=== PATIENT | male | born 1965 | race Caucasian/White ===

== ENCOUNTER 2024-03-18 06:19 | Day surgery (SDC) | payer OTHER, SELFPAY ==
[2024-03-18] VITALS (14 sets, daily range): BP systolic 118–155; BP diastolic 73–90; BMI 27.3
[2024-03-18] MEDS: NSS 256 ML IV (07:02)
[2024-03-18 07:09] LABS: Glucose - Point of Care 291 mg/dl (70-99)
--- NOTE | 2024-03-18 08:01 | ITS.CL.CATH ---
Athletic Agent - Catheterization
Cardiac Catheterization
Procedure Report:
CARDIAC CATHETERIZATION REPORT
Date of Procedure: 03/18/2024
Referring: Delmar Cain DO
Indication: Exertional angina with ischemic stress test and new left ventricular dysfunction
�
HEMODYNAMIC DATA
AO: 148/94
LV: 148/20
�
LEFT VENTRICULOGRAPHY: Inferobasal akinesis with severe inferoapical hypokinesis. There is mild anterolateral hypokinesis. The EF is 42%
�
CORONARY ANGIOGRAPHY
Dominance: Right
Left Main: 60-70% distal stenosis at the trifurcation
LAD: The LAD is diffusely diseased throughout its course. There is diffuse pattern precludes segmental stenosis estimates. The most severe segment of disease involves the distal LAD. D1 is small. D2 is large with 70% ostial stenosis
Circumflex: The ramus intermedius is large with long 60% proximal stenosis. The circumflex is occluded distal to the takeoff of a very small OM1. The larger OM 2 fills retrograde via left to left collaterals
RCA: The RCA is proximally occluded. The RPDA appears to be a medium sized diffusely diseased vessel filling via [id number] collaterals
�
Closure Device: None-the procedure was performed via the right radial artery. The Logan's test was normal prior to the procedure.
�
Radiation (mGy): 232
DAP (cm2.Gy): 16.2
Fluoroscopy time: 1.5 minutes
�
CONCLUSIONS
1:�Systemic hypertension
2:�Elevated LVEDP
3. Inferobasal akinesis with mild anterolateral hypokinesis with EF 42%
4. Severe diffuse multisegment triple-vessel CAD with distal left main coronary artery stenosis
5. Recommend elective CABG with grafting of the LAD, large D2, ramus intermedius, OM 2, and if possible RPDA. The patient has been advised to avoid any strenuous activity and report to the emergency room if having increasing anginal symptoms. He
will be started on metoprolol 25 mg daily and given sublingual nitroglycerin. Continue aspirin and Crestor
�
�
Copy to: Delmar Cain DO, Sidney Sarkar MD
�
Silvio Vaughan MD, FACC, [facility]
[2024-03-18 08:27] LABS: Glucose - Point of Care 256 mg/dl (70-99)
[2024-03-18] MEDS: LOPRESSOR 25 MG PO (08:40)
== END 2024-03-18 11:00 | disposition home or self-care (01) ==
LOC: CATH 06:19
PROVIDERS: ATTENDING PHYSICIAN Internal Medicine Cardiovascular Disease; FAMILY PHYSICIAN Family Medicine; OTHER PHYSICIAN Internal Medicine Cardiovascular Disease
DX: I25.118 Atherosclerotic heart disease of native coronary artery with other forms of angina pectoris (principal); I51.9 Heart disease, unspecified; R94.39 Abnormal result of other cardiovascular function study; Z79.899 Other long term (current) drug therapy; Z79.82 Long term (current) use of aspirin; I10 Essential (primary) hypertension
CPT/HCPCS: 82962; 93005; 93458; C1894; Q9967

== ENCOUNTER 2024-04-10 05:10 | Inpatient (IN) | payer OTHER, SELFPAY ==
[2024-04-07 12:30] VITALS: BMI 27.2
[2024-04-07 13:12] LABS: % Basophils 1.3 % (0-2); % Eosinophils 1.4 % (0-6); % Immature Granulocytes 0.5 % (0-0.5); % Lymphocytes 39.2 % (20.5-51.1); % Monocytes 8.1 % (1.7-9.3); % Neutrophils 49.5 % (42.2-75.2); Absolute Basophils 0.1 10^3/uL (0-0.2); Absolute Eosinophils 0.2 10^3/uL (0-0.7); Absolute Immature Granulocytes 0.1 10^3/uL (0-0.05); Absolute Lymphocytes 4.1 10^3/uL (1.2-3.4); Absolute Monocytes 0.8 10^3/uL (0.1-0.6); Absolute Neutrophils 5.1 10^3/uL (1.4-6.5); Hematocrit 38.3 % (39.0-52.0); Hemoglobin 13.8 g/dL (13.0-18.0); Mean Corpuscular Hgb 28.7 pg (27.0-31.0); Mean Corpuscular Volume 79.6 fL (80.0-94.0); Mean Platelet Volume 10.1 fL (7.4-10.4); Nucleated Red Blood Cells % 0 % (-); Platelet Count 266 10^3/uL (130-400); Red Blood Cell Count 4.81 10^6/uL (4.70-6.10); White Blood Cell Count 10.4 10^3/uL (4.8-10.8)
[2024-04-07 13:17] LABS: INR 1.05; PT 13.7 Sec (11.4-14.6)
[2024-04-07 13:18] LABS: ALT (SGPT) 22 U/L (0-50); AST (SGOT) 24 U/L (17-59); Albumin 4.5 g/dl (3.5-5.0); Alkaline Phosphatase 75 U/L (38-126); Blood Urea Nitrogen 22 mg/dl (9-20); Calcium 10.3 mg/dl (8.4-10.2); Carbon Dioxide 23 mmol/L (22-30); Chloride 100 mmol/L (98-107); Direct Bilirubin 0.2 mg/dl (0.0-0.4); Estimated Creatinine Clearance 60 ml/min; Glucose 229 mg/dl (70-99); Potassium 4.6 mmol/L (3.5-5.1); Sodium 137 mmol/L (135-145); Total Bilirubin 0.6 mg/dl (0.2-1.3); Total Protein 6.9 g/dl (6.3-8.2); eGFR > 60.00
[2024-04-07 14:03] LABS: Urine Albumin 3+ (Neg - Trace); Urine Bilirubin Negative (Negative); Urine Character Clear (Clear); Urine Color Yellow; Urine Glucose 2+ (Negative); Urine Ketone Negative (Negative); Urine Leukocyte Negative (Negative); Urine Nitrite Negative (Negative); Urine Occult Blood 4+ (Negative); Urine Urobilinogen Negative (Neg - 1+)
--- NOTE | 2024-04-07 14:23 | CM ---
Met with and Mrs. Carmichael in [facility]'s. He states prior to admission he resides with his spouse and son in a two story home with three steps to enter. He states his bedroom/full bathroom is on the first floor. He states prior to admission he
was independent with ambulation and adls. He states he does not have any DME in the home. He states he has a prescription plan and uses [facility]. He states his spouse will be home to assist in his care if needed. The discharge plan is to
return home with his spouse and son and a home visit by the Cardiothoracic Transitional Care Nurse when medically stable.
We reviewed pre-op and post-op routines. We reviewed the shower instructions. He has the soap, written instructions and the Cardiothoracic Surgery Educational Booklet. We also reviewed restrictions including sternal precautions and driving
restrictions. We discussed a home visit by the Cardiothoracic Transitional Care Nurse. He is agreeable to a home visit. The plan is to CABG on Wednesday, April 10, 2024.
[2024-04-07 15:08] LABS: Glycohemoglobin (HgbA1c) 9.2 % (4.0-5.6)
[2024-04-07 15:29] LABS: Urine Mucus Many
[2024-04-07 15:30] LABS: Urine Amorphous Seen
[2024-04-07 15:31] LABS: Urine White Cell 0-2 /HPF (0-5)
[2024-04-07 15:32] LABS: Urine Hyaline Cast 0-2 /LPF (0-2)
[2024-04-10] VITALS (17 sets, daily range): BP systolic 78–137; BP diastolic 51–93; BMI 26.5
[2024-04-10] MEDS: LOPRESSOR 25 MG PO (05:38)
[2024-04-10] MEDS: MAGNESIUM OXIDE 500 MG PO (05:38)
[2024-04-10] MEDS: PROTONIX 40 MG PO (05:38)
[2024-04-10] MEDS: BACTROBAN 2% OINTMENT 1 APPLIC NASAL ×2 (05:43→22:04)
--- NOTE | 2024-04-10 05:59 | PTCARENOTE ---
pt admitted to the CVICU, pt NPO since midnight and CHG bath performed at home prior. pt clipped & shaved, pre-op meds given, washed with CHG wipes, awaiting CVOR
[2024-04-10 07:27] LABS: ACT+ - POC 93 Seconds (82-134)
[2024-04-10 08:12] LABS: Urine Albumin 3+ (Neg - Trace); Urine Bilirubin Negative (Negative); Urine Character Clear (Clear); Urine Color Yellow; Urine Glucose 1+ (Negative); Urine Ketone Negative (Negative); Urine Leukocyte Negative (Negative); Urine Nitrite Negative (Negative); Urine Occult Blood 3+ (Negative); Urine Urobilinogen Negative (Neg - 1+)
[2024-04-10 08:21] LABS: Urine Squamous Cell 0-2 /LPF (Few)
[2024-04-10 08:22] LABS: Urine Bacteria Few (Negative); Urine Red Blood Cell 16-20 /HPF (0-2); Urine White Cell 0-2 /HPF (0-5)
[2024-04-10 10:15] LABS: B.E. - POC -2.2 mmol/L; Glucose - POC 225 mg/dl (70-99); HCO3 - POC 23 mmol/L (21-29); Hematocrit - POC 33 % PCV (42-52); Hemodilution- POC No; Hemoglobin Calculated - POC 11.3; Ionized Calcium - POC 1.26 mmol/L (1.12-1.27); O2 Saturation %Calculated-POC 99.6 5 (92-96); PCO2 - POC 38 mmHg (35-45); PO2 - POC 175 mmHg (80-100); POC Comment PRE; Potassium - POC 3.9 mmol/L (3.6-5.0); Sodium - POC 137 mmol/L (135-145); pH - POC 7.38 (7.35-7.45)
[2024-04-10 10:44] LABS: Glucose - POC 214 mg/dl (70-99); HCO3 - POC 25 mmol/L (21-29); Hematocrit - POC 25 % PCV (42-52); Hemodilution- POC Yes; Hemoglobin Calculated - POC 8.4; PCO2 - POC 35 mmHg (35-45); PO2 - POC 446 mmHg (80-100); POC Comment CPB; Sodium - POC 135 mmol/L (135-145); pH - POC 7.46 (7.35-7.45)
--- NOTE | 2024-04-10 10:55 | CM ---
pt in OR today, cm to follow.
[2024-04-10 11:13] LABS: B.E. - POC 1.3 mmol/L; Glucose - POC 187 mg/dl (70-99); HCO3 - POC 25 mmol/L (21-29); Hematocrit - POC 24 % PCV (42-52); Hemodilution- POC Yes; Hemoglobin Calculated - POC 8.2; Ionized Calcium - POC 1.03 mmol/L (1.12-1.27); PCO2 - POC 35 mmHg (35-45); PO2 - POC 338 mmHg (80-100); POC Comment CPB; Potassium - POC 4.4 mmol/L (3.6-5.0); Sodium - POC 138 mmol/L (135-145); pH - POC 7.47 (7.35-7.45)
[2024-04-10 11:42] LABS: B.E. - POC 0.8 mmol/L; Glucose - POC 144 mg/dl (70-99); HCO3 - POC 25 mmol/L (21-29); Hematocrit - POC 23 % PCV (42-52); Hemodilution- POC Yes; Hemoglobin Calculated - POC 7.9; Ionized Calcium - POC 1.02 mmol/L (1.12-1.27); O2 Saturation %Calculated-POC 99.9 5 (92-96); PCO2 - POC 35 mmHg (35-45); PO2 - POC 306 mmHg (80-100); POC Comment CPB; Potassium - POC 4.3 mmol/L (3.6-5.0); Sodium - POC 139 mmol/L (135-145); pH - POC 7.46 (7.35-7.45)
[2024-04-10 12:18] LABS: B.E. - POC 0.5 mmol/L; Glucose - POC 127 mg/dl (70-99); HCO3 - POC 25 mmol/L (21-29); Hematocrit - POC 24 % PCV (42-52); Hemodilution- POC Yes; Ionized Calcium - POC 1.02 mmol/L (1.12-1.27); PCO2 - POC 39 mmHg (35-45); PO2 - POC 380 mmHg (80-100); POC Comment REWARM; Potassium - POC 4.5 mmol/L (3.6-5.0); Sodium - POC 140 mmol/L (135-145); pH - POC 7.42 (7.35-7.45)
[2024-04-10 12:49] LABS: B.E. - POC -0.1 mmol/L; Glucose - POC 153 mg/dl (70-99); HCO3 - POC 25 mmol/L (21-29); Hematocrit - POC 24 % PCV (42-52); Hemodilution- POC Yes; Hemoglobin Calculated - POC 8.3; Ionized Calcium - POC 1.08 mmol/L (1.12-1.27); PCO2 - POC 38 mmHg (35-45); PO2 - POC 477 mmHg (80-100); POC Comment WARM; Potassium - POC 4.4 mmol/L (3.6-5.0); Sodium - POC 142 mmol/L (135-145); pH - POC 7.41 (7.35-7.45)
[2024-04-10 12:54] LABS: ACT+ - POC 96 Seconds (82-134)
[2024-04-10 13:34] LABS: B.E. - POC -1.1 mmol/L; Glucose - POC 159 mg/dl (70-99); HCO3 - POC 23 mmol/L (21-29); Hematocrit - POC 25 % PCV (42-52); Hemodilution- POC Yes; Hemoglobin Calculated - POC 8.3; Ionized Calcium - POC 1.11 mmol/L (1.12-1.27); O2 Saturation %Calculated-POC 99.9 5 (92-96); PCO2 - POC 34 mmHg (35-45); PO2 - POC 274 mmHg (80-100); POC Comment POST; Potassium - POC 4.1 mmol/L (3.6-5.0); Sodium - POC 141 mmol/L (135-145); pH - POC 7.44 (7.35-7.45)
--- NOTE | 2024-04-10 13:40 | W.CVOR.SURPR ---
CVOR Surgeon Immed Pre Op
-
I have examined this patient prior to performance of the scheduled procedure.
The patient's condition is unchanged from the time of the dictated/written History and
Physical and the patient is able to undergo the scheduled procedure.
--- NOTE | 2024-04-10 13:40 | W.IMMPOSTOP ---
Addendum entered and electronically signed by Jag Rasmussen MD 04/10/24 14:40:
[id number]
ADDENDUM:
All instrument, sponge, and needle counts correct x 2
Original Note:
Surgical Immed Post Op Note
-
CARDIAC SURGERY OPERATIVE NOTE:
Preoperative Dx:
Severe multi-vessel CAD
Inferobasal akinesis w/ mild anterolateral hypokinesis, LVEF 42%
Postoperative Dx:
Same
Procedures:
1) Median sternotomy
2) Takedown of MARK (narrow pedicle)
3) Endoscopic harvest/prep of RLE GSV
4) CABG x 4 (MARK to distal LAD, GSV to D1, GSV to D2, GSV to OM)
Surgeon:
Jag Rasmussen M.D.
Assistants:
Mitzy Barahona P.A.-C.; endoscopic harvest/prep of RLE GSV, assistant professor of music throughout, closure
Raymon Hobson P.A.-C.; closure of RLE GSV incision
Anesthesia:
Tim Alexander M.D. and Opal VargasN.A.
Perfusion:
Farzana GoddardCWil; XC: 95min, CPB: 146min
Findings:
MARK was healthy conduit w/ brisk blood flow, ELD 2.5mm
GSV was healthy conduit w/ ELD ranging from 3.0-5.0mm
LAD was visible on the epicardial surface. It was extensively calcified throughout its course. The apical segment of the LAD appeared amenable to bypass. ELD 1.20mm. Anastomosis performed over 1.0mm shunt. Brisk blood flow from MARK into LAD
and diagonal tributaries on release of proximal clamp.
D1 was visible on the epicardial surface. It was extensively calcified throughout its course. ELD 1.75mm.
D2 was visible on the epicardial surface. It was extensively calcified throughout its course. ELD 1.50mm
OM was visible on the epicardial surface. It was extensively calcified throughout its course. ELD 1.10mm
PDA was visible on the epicardial surface. It was extensively investigated in numerous locations, but was a diminutive vessel (<1.00mm) not amenable to bypass.
KELSI: LVEF 45% w/ mild global hypokinesis w/ basal inferior segment the worst. Mild concentric LVH. Mild central MR.
Transfusions:
2U PRBC
Implants:
A- and V- temporary epicardial pacing wires & grounding wires (initially bradycardic post CPB)
CT x 4 (anterior mediastinal, inferior mediastinal, bilateral pleural)
Sternal wires x 9
Complications:
None
Condition:
80 sinus w/ ?BBB. 123/65. CVP 14.
GTTS: NTG 25, insulin 1, precedex 0.5, dobutamine 3
Stable, guarded to CVICU
--- NOTE | 2024-04-10 14:00 | PTCARENOTE ---
Received patient from CVOR. Pt intubated and sedated. RAAS -5. POX 100%. 8.0 ETT 24cm at the lip. SIMV 60% 14 550 5/5. Not over breathing the vent at this time. Anterior lung sounds clear. Right and left pleural chest tubes y-sited to 1 atrium to
-20cm suction draining red fluid. Mediastinal chest tubes x2 y-sited to 1 atrium to -20cm suction draining red fluid. No air leaks, tidaling, or crepitus noted. NSR with 1st degree AVB and LBBB on tele with rates in the 80s. BP supported with
levophed. Epicardial AV wires intact. No pacing noted. Thresholds completed and set to back up VVI 50//20 Bilateral radial and DP pulses palpable. No edema noted. CVP 3. Abdomen soft, round, nontender. Hypoactive BS. Alvarez catheter intact draining
adequate amounts of clear yellow urine. Sternal incision covered with Aquacel-CDI. Chest tube dressing CDI. Right groin puncture site slightly oozy, 4x4 tegaderm applied. Right SVG harvest site approximated with skin glue, ROBERT wrap intact. Right
lower leg puncture site slightly oozy, 4x4, tegaderm applied. Right IJ cordis with slick intact. Left radial zoraida intact. Lines flushed, leveled, and zeroed. Right hand 20g PIV intact. See MAR for medication administration. See worklist for
complete nursing assessment. Post op EKG, Labs, and CXR completed.
[2024-04-10 14:10] LABS: Glucose - Point of Care 191 mg/dl (70-99)
--- NOTE | 2024-04-10 14:17 | CON.INTV ---
Consultation
Consultation Request
Date/Time Consultation Requested: 04/10
Date/Time Consultation Performed: 04/10
Reason for Consultation: Critical care
Medical History
-
History of Present Illness:
History obtained from the chart, reviewing hospital records. 59-year-old male with history of coronary disease, hypertension, hyperlipidemia, type 2 diabetes who presented with abnormal stress test and exertional angina. He was found to have EF of
42% with severe diffuse multisegment triple-vessel disease. He is now status post CABG 04/10/2024. Patient received 2 units of blood. Presently on low-dose norepinephrine
.
PMH: Hypertension, hyperlipidemia, diabetes, coronary disease, gout, history of skin cancer, depression, left tibia fracture
Past Medical History
Past Medical History: None (See above)
Past Surgical History: None (See above oral)
Social History
Tobacco: Non-smoker
Alcohol: Occasional
Drug: None
Personal:
Living: With Family
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
Family History
Family History: Other (Father 84, mother alive 84. 1 sister from pancreatic cancer. 1 sister with disability. Children healthy)
Allergies / Home Medications
Allergies
Allergy/AdvReac Type Severity Reaction Status Date / Time
No Known Allergies Allergy Verified 04/02/24 15:06
Home Medications
�Medication �Instructions �Recorded �Confirmed �Last Taken �Type
fluoxetine 20 mg capsule 20 mg PO DAILY 03/18/24 04/10/24 04/09/24 07:30 History
ibuprofen 200 mg capsule 200 mg PO Q6H PRN pain 03/18/24 04/10/24 02/28/24 08:00 History
metformin 500 mg tablet 500 mg PO BID 03/18/24 04/10/24 04/09/24 07:30 History
metoprolol succinate 25 mg 25 mg PO DAILY #90 tabs 03/18/24 04/10/24 04/09/24 07:30 Rx
tablet,extended release 24 hr
nitroglycerin 0.4 mg sublingual 0.4 mg sublingual [id number] PRN 03/18/24 04/10/24 04/08/24 20:00 Rx
tablet chest pain #25 tabs
rosuvastatin 40 mg tablet 40 mg PO DAILY 03/18/24 04/10/24 04/09/24 07:30 History
aspirin 81 mg capsule 81 mg PO DAILY 04/02/24 04/10/24 04/09/24 07:30 History
Review of Systems
-
Unable to Obtain full review of systems at this time due to: Patient Intubation
All other systems: Negative unless noted
Vitals / Labs / Diagnostic Testing
Vital Signs
Pulse Resp Pulse Ox
64 20 100
04/10/24 06:00 04/10/24 06:00 04/10/24 06:00
Microbiology
04/07/24 12:25 Nose MRSA Screen - Final
No Methicillin Resistant Staphylococcus aureus isolated.
Diagnostic Testing:
Physical Exam
-
HEENT: Normocephalic, Anicteric and Other (Right IJ, upper extremity A-line, chest tube)
Cardiovascular: S1/S2, Regular Rhythm, Murmur (n) and Rub (n)
Respiratory: Wheeze (n), Rales (n) and Rhonchi (n)
GI: Soft, Non Distended and Non Tender
Neurology: Other (Sedated and)
General: Comfortable
Assessment
-
59-year-old male with history of shortness of breath, abnormal stress test, found to have LV dysfunction. Cardiac catheterization revealed severe multivessel coronary disease with distal left main disease. He is now status post CABG 04/10/2024.
S/p CABG 04/10/24
Multivessel coronary disease, distal left main disease
Ischemic cardiomyopathy, EF 43% conditions present prior to admission
Anemia
S/p 2U shamar-operative left bundle branch block, per EKG
Conditions present prior to admission
Hyperlipidemia
History of skin cancer
History of left tibial fracture
Family history of cancer (sister)
Plan/recommendations
At this time, patient appears to be comfortable. Remains on volume-cycled ventilation
Adequate oxygenation/ventilation, adequate airway pressures
Chest x-ray without acute findings, chest exam is clear
Preoperative spirometry normal
Postoperatively EKG unremarkable, left bundle branch noted. This is new compared to preoperative EKG
Moving forward
Continue with supportive care per CT surgery
Anticipate extubation later today, per CT surgery protocol
Presently on dobutamine left bundle branch block noted per EKG
Cardiology following
Follow hemoglobin
Received 2 units of blood
Chest tube output minimal
Follow blood sugars
Reviewed with critical care nursing
TCCT 31 min
[2024-04-10 14:18] LABS: B.E. -1.9 mmol/L; HCO3 21.9 mmol/L (21-28); Ionized Calcium 1.05 mMOL/L (1.15-1.33); O2 Saturation % 99.3 % (94-98); PCO2 33 mmHg (35-48); PO2 211 mmHg (83-108); Potassium 4.3 mMOL/L (3.5-5.1); Sodium 137 mMOL/L (136-145); pH 7.43 (7.35-7.45)
[2024-04-10 14:28] LABS: ACT+ - POC > 1003 Seconds (82-134)
[2024-04-10 14:28] LABS: ACT+ - POC > 1003 Seconds (82-134)
[2024-04-10 14:28] LABS: ACT+ - POC > 1003 Seconds (82-134)
[2024-04-10 14:28] LABS: ACT+ - POC > 1003 Seconds (82-134)
[2024-04-10 14:28] LABS: ACT+ - POC > 1003 Seconds (82-134)
[2024-04-10] MEDS: ANCEF 10 IV ×2 (14:31)
[2024-04-10] MEDS: NSS 500 IV (14:32)
[2024-04-10] MEDS: PACERONE PO ×2 (14:32→22:11)
[2024-04-10] MEDS: TYLENOL PO ×2 (14:32→22:11)
[2024-04-10] MEDS: CRESTOR PO (14:32)
[2024-04-10] MEDS: PROZAC PO (14:32)
[2024-04-10] MEDS: NOVOLOG FLEXPEN SC (14:32)
[2024-04-10 14:34] LABS: Mixed Venous O2 Saturation 64.5 %
[2024-04-10] MEDS: LR 250 ML IV ×3 (14:34→18:07)
[2024-04-10 14:35] LABS: Hematocrit 29.3 % (39.0-52.0); Hemoglobin 10.6 g/dL (13.0-18.0); Platelet Count 161 10^3/uL (130-400)
[2024-04-10 14:37] LABS: APTT 32.5 Sec (23.4-35.0); INR 1.52; PT 18.2 Sec (11.4-14.6)
[2024-04-10 14:40] LABS: Blood Urea Nitrogen 18 mg/dl (9-20); Estimated Creatinine Clearance 71 ml/min; Glucose 192 mg/dl (70-99); Magnesium 3.2 mg/dl (1.6-2.3)
[2024-04-10] MEDS: CALCIUM CHLORIDE 10% SYRINGE 50 MG IV (14:45)
[2024-04-10] MEDS: CALCIUM CHLORIDE 10% SYRINGE 50 ML IV (14:45)
--- NOTE | 2024-04-10 14:45 | PTCARENOTE ---
ETT retracted by RT 2cm as per CT UTILITY AIRCREWMAN. Now taped 22cm at the lip. Pt tolerated POX 99%.
--- NOTE | 2024-04-10 14:54 | W.PN.UPDATE ---
Update Note
Progress Note Update
IV fluids: 2800
U.O.:� 1000
UF:� 300
Blood:� 2uPRBCS
Wires:� A+V
Inotropes:� Dobutamine @3
Pressors:� None
Sedatives:� Precedex
�
NEURO: sedated on precedex, pupils +2mm B/L
RESP: #8OT @24cm> 14/550/60/5. Lungs clear B/L. 2 mediastinal (20cc on arrival) and R/L pleural (5cc on arrival) chest tubes to -20cm suction. Sanguineous drainage
CV: RRR +S1, S2, no S3, no�rub, no murmur. Dermabond to median sternotomy. RIJ w/Slicc
EXT: no edema, +2/4 DP pulses B/L, no femoral bruit, LE ROBERT wrap intact; Left radial A-line intact
: Alvarez with clear yellow urine
�
A/P: POD #0 s/p CABG x4
KELSI: EF�45%
- wean and extubate
- Monitor CT and urine output
- Follow up labs and CXR
- Maintain dobutamine per Dr. Rasmussen
- Will start ASA tonight
- EKG pending and will send to cards
- Cards consulted
�
# acute surgical blood loss anemia-expected
- trend CBC
�
# T2DM (A1C 9.2)
- insulin infusion x 48h
- DM management SIMULATION SPECIALIST consulted
�
# Hyperlipidemia
- resume�statin
[2024-04-10 15:06] LABS: Glucose - Point of Care 173 mg/dl (70-99)
[2024-04-10 16:10] LABS: Glucose - Point of Care 153 mg/dl (70-99)
--- NOTE | 2024-04-10 16:45 | PTCARENOTE ---
Pt intermittently will open eyes and close eyes to commands. Wiggle toes and squeezes hands lightly with encouragement. Pt bathed with CHG wipes and turned from side to side. No significant dumps from chest tubes. Pt tolerated.
[2024-04-10] MEDS: ZOFRAN 4 MG IV (16:52)
[2024-04-10 17:00] LABS: Glucose - Point of Care 127 mg/dl (70-99)
[2024-04-10 17:50] LABS: Hemoglobin 11.2 g/dL (13.0-18.0); Platelet Count 179 10^3/uL (130-400)
--- NOTE | 2024-04-10 17:50 | PTCARENOTE ---
Pt more awake, following commands. CT SALES DEPARTMENT MANAGER at bedside to place pt on cpap trial. Pt tolerating, no apnea.
--- NOTE | 2024-04-10 17:54 | RESPNOTE ---
Patient placed on CPAP trial by BRICK CLEANER Alyssa Rosado.
[2024-04-10 18:03] LABS: Glucose - Point of Care 135 mg/dl (70-99)
[2024-04-10 18:30] LABS: B.E. -4.3 mmol/L; HCO3 21.6 mmol/L (21-28); Ionized Calcium 1.24 mMOL/L (1.15-1.33); PCO2 42 mmHg (35-48); PO2 169 mmHg (83-108); pH 7.32 (7.35-7.45)
--- NOTE | 2024-04-10 18:35 | PTCARENOTE ---
Orders to extubate from CT WHANAU SUPPORT WORKER. Pt extubated at 1835 to 6L NC. POX 98%. Pt tolerated, unable to do IS at this time. Pt able to state name, , place, and year.
--- NOTE | 2024-04-10 18:42 | RESPNOTE ---
Patient extubated after CPAP trial and abg. Patient placed on a 6L nasal cannula. IS instruction completed
[2024-04-10] MEDS: OFIRMEV 100 IV (19:00)
[2024-04-10] MEDS: REGLAN 10 MG IV (19:11)
[2024-04-10 19:14] LABS: Glucose - Point of Care 134 mg/dl (70-99)
--- NOTE | 2024-04-10 19:42 | PTCARENOTE ---
obtained pt from day shift nurse, pt is oriented x3 but drowsy, mild complaints of pain Offirmev given, NSR with 1st degree HB and LBB, HR 70s, BPs 140s/80s levo turned off now 110s/40s MAP 65, A/V wire set to VVI V wire 40 16 0.8, CVP 1-2, palpable
pulses, no edema, 6L NC, pox 99-100%, anterior lungs coarse with rhonchi, productive cough w/ thick clear sputum, CTx4 no air leak, no tidaling, +crepitus felt throughout L/R upper chest/neck CTP notified, hypoactive bs, n/v reglan given at change
of shift, hahn putting out clear yellow urine, sternal incision w/ aquacell c/d/i, R groin w/ 4x4 c/d/i, R leg incision w/ nadia wrap c/d/i, R leg puncture 2x2 w/ scant old drainage, RIJ cordis w/ slic single lumen infusion catheter, L a line,
central lines zeroed and flushed, r hand PIV patent, received pt w/ 3 of dobut, levo turned off at 1900, insulin per protocol, pt sleeping btwn care, call mascorro within reach, bed low and locked
[2024-04-10] MEDS: SODIUM BICARBONATE 50 MEQ IV (20:01)
[2024-04-10] MEDS: ANCEF 5 IV (20:01)
[2024-04-10] MEDS: LOW STRENGTH ASPIRIN 81 MG PO (20:10)
[2024-04-10 20:34] LABS: B.E. -0.1 mmol/L; HCO3 25.4 mmol/L (21-28); PCO2 44 mmHg (35-48); PO2 215 mmHg (83-108); Potassium 4.1 mMOL/L (3.5-5.1); pH 7.37 (7.35-7.45)
[2024-04-10 20:36] LABS: O2 Therapy NONE GIVEN
[2024-04-10 21:05] LABS: Glucose - Point of Care 125 mg/dl (70-99)
[2024-04-10] MEDS: SENOKOT-S PO (22:05)
[2024-04-10] MEDS: NEURONTIN PO (22:10)
[2024-04-10 23:00] LABS: Glucose - Point of Care 116 mg/dl (70-99)
[2024-04-11] VITALS (32 sets, daily range): BP systolic 76–136; BP diastolic 51–98; BMI 28.0
--- NOTE | 2024-04-11 | PTCARENOTE ---
VSS, NSR per tele, assessment remains unchanged
[2024-04-11 00:02] LABS: Glucose - Point of Care 104 mg/dl (70-99)
[2024-04-11 01:03] LABS: Glucose - Point of Care 112 mg/dl (70-99)
[2024-04-11] MEDS: NEURONTIN 100 MG PO ×4 (01:05→22:14)
[2024-04-11] MEDS: TYLENOL PO ×2 (01:06→08:32)
[2024-04-11] MEDS: TYLENOL 1000 MG PO ×3 (01:08→22:14)
[2024-04-11 02:02] LABS: Glucose - Point of Care 104 mg/dl (70-99)
[2024-04-11 03:01] LABS: Glucose - Point of Care 107 mg/dl (70-99)
[2024-04-11 03:40] LABS: Hemoglobin 10.4 g/dL (13.0-18.0); Mean Corp Hgb Conc. 35.9 g/dL (33.0-37.0); Mean Corpuscular Hgb 29.5 pg (27.0-31.0); Mean Corpuscular Volume 82.2 fL (80.0-94.0); Mean Platelet Volume 10.1 fL (7.4-10.4); Platelet Count 157 10^3/uL (130-400); Red Blood Cell Count 3.53 10^6/uL (4.70-6.10); Red Cell Dist. Width 13.3 % (11.5-14.5)
[2024-04-11 04:01] LABS: Blood Urea Nitrogen 21 mg/dl (9-20); Calcium 8.6 mg/dl (8.4-10.2); Carbon Dioxide 24 mmol/L (22-30); Chloride 107 mmol/L (98-107); Estimated Creatinine Clearance 65 ml/min; Glucose 106 mg/dl (70-99); Magnesium 2.6 mg/dl (1.6-2.3); Potassium 4.5 mmol/L (3.5-5.1); Sodium 142 mmol/L (135-145); eGFR > 60.00
[2024-04-11 04:06] LABS: Glucose - Point of Care 104 mg/dl (70-99)
[2024-04-11] MEDS: REGLAN 10 MG IV (04:15)
[2024-04-11] MEDS: ANCEF 5 IV ×2 (04:15→12:38)
--- NOTE | 2024-04-11 04:17 | PTCARENOTE ---
routine labs obtained, pt complaining of n/v reglan given, NSR per tele, VSS, assessment remains unchanged
[2024-04-11 04:41] LABS: Mixed Venous O2 Saturation 99.8 %
--- NOTE | 2024-04-11 05:05 | W.PN.CT ---
Today's Communication / Plan
-
-pod #1
-no issues overnight
-drips: Dobut 3, Insulin, Nitro 5
-CT output: 2 pleur 55/110, 2 meds 135/245 in 12/24 hrs
-wean Dobut as tolerated, then deline
-continue insulin
-? maintain Alvarez while on Dobut
-current meds (ASA, Plavix, Crestor, Lopressor, Amio, Protonix)
-encourage IS, OOB
Assessment / Plan
-
- Severe multi-vessel CAD- s/p CABG x 4 (MARK to distal LAD, GSV to D1, GSV to D2, GSV to OM) on 04/10/[address] Rasmussen, pod #1
- Intraop KELSI: LVEF 45% w/ mild global hypokinesis w/ basal inferior segment the worst. Mild concentric LVH. Mild central MR.
- Inferobasal akinesis w/ mild anterolateral hypokinesis
- Ischemic cardiomyopathy, LVEF 42%
- HTN/HLD
- DM II
- Migraines
- Gout
- hx epistaxis
- Skin CA neck/face
- Depression
- Acute postop blood loss anemia - s/p 2 pRBCs
- Acute postop coagulopathy
- Acute postop hypovolemia with subsequent hypervolemia
- Acute postop atelectasis
- Acute postop 1st degree AVB and LBBB - both resolved
- Suspected acute postop pericarditis on ECG
Discussed patient care with: Nursing and Care Team
Subjective
Procedure
- s/p CABG x 4 (MARK to distal LAD, GSV to D1, GSV to D2, GSV to OM) on 04/10/[address] Rasmussen
-
Date of Service: April 10, 2024
Objective Data
-
Lab Results
04/10/24 17:34
04/10/24 14:05
PT 18.2 Sec (11.4-14.6) H 04/10/24 14:05
INR 1.52 04/10/24 14:05
APTT 32.5 Sec (23.4-35.0) 04/10/24 14:05
Vital Signs
Vital Signs
Temp Pulse Resp BP Pulse Ox
97.4 F 69 18 103/63 100
04/10/24 23:00 04/10/24 23:00 04/10/24 23:00 04/10/24 23:00 04/10/24 23:00
CT Intake/Output/Weight
04/10/24 04/10/24 04/11/24
06:59 18:59 06:59
Intake Total 984.6 / 1143.4 158.8 / 1143.4
Output Total 760 / 1080 320 / 1080
Balance 224.6 / 63.4 -161.2 / 63.4
SaO2: 100
Physical Exam
-
General: Awake and AOx3
Cardiovascular: Regular rate & rhythm, No Murmurs and No Rub
Respiratory: Decreased Breath Sounds
Sternum: Stable
Incision: Clean, Dry and Intact
Extremities: No Edema (1+ DPs b/l)
Abdomen: soft, nontender, nondistended, decreased + bowel sounds
Data Reviewed
-
Lab Results: Results Reviewed
Medications: Active Meds Reviewed
Chest X-Ray: Report Reviewed and Image Reviewed
ECG: Report Reviewed and Image Reviewed
[2024-04-11 05:21] LABS: Mixed Venous O2 Saturation 48.1 %
--- NOTE | 2024-04-11 05:52 | PTCARENOTE ---
Addendum entered by Stephanie Nation RN 04/11/24 06:08:
SLIC d/cd per order, keeping A line and hahn per CTPA
Original Note:
pt OOB to chair, CHG bath given, hahn care complete w/ hahn wipes, pt complaining of nausea
[2024-04-11 06:06] LABS: Glucose - Point of Care 165 mg/dl (70-99)
--- NOTE | 2024-04-11 08:03 | W.PN.ANS.POP ---
Anesthesia Post Operative
- Anesthesia Post Op Note
Vital Signs Stable-See Nursing Note: Yes
Airway Patent: Yes
Adequate Pain Control: Yes
Change in Mental Status: No
Current Postoperative Nausea & Vomiting: No
Anesthesia Complications: No
General Anesthetic Recall: No
Unplanned Admission: No
Post Op Hydration Adequate: Yes
[2024-04-11] MEDS: ZOFRAN 4 MG IV (08:04)
--- NOTE | 2024-04-11 08:17 | W.PN.INTV ---
Today's Communication / Plan
Recommendations
Pain control
Up OOB as tolerated
Encourage incentive spirometer use 10x/hr for at least 4 hrs a day
Continue with insulin drip per protocol with goal BG 140�180
Wean off dobutamine as tolerated
Assisted Living Associate/pulmonary service will continue to follow along while patient remains in the CVICU. [facility] then we will sign off.
Assessment
-
59-year-old male with history of shortness of breath, abnormal stress test, found to have LV dysfunction. Cardiac catheterization revealed severe multivessel coronary disease with distal left main disease. He is now status post CABG 04/10/2024.
S/p CABG: OR date: 04/10/24
Multivessel coronary disease, distal left main disease
Ischemic cardiomyopathy, EF 43% conditions present prior to admission
Anemia
S/p 2U shamar-operative left bundle branch block, per EKG
Conditions present prior to admission
Hyperlipidemia
History of skin cancer
History of left tibial fracture
Family history of cancer (sister)
Plan/recommendations
At this time, patient is doing well. Breathing comfortably on room air; extubated on 04/10/2024 to 6 L/min nasal cannula
Chest x-ray without acute findings, chest exam is clear
Preoperative spirometry normal
Postoperatively EKG unremarkable, left bundle branch noted. This is new compared to preoperative EKG
Moving forward
Continue with supportive care per CT surgery
Maintain SpO2 >90-94%
Up OOB as tolerated
Pain control
Encourage incentive spirometer use
Continue insulin drip per protocol, maintain BG goal at 140�180
Maintain MAP >65
Continue dobutamine and wean off as tolerated
Trend hemoglobin
Received 2 units of blood on 04/10/2024
Transfuse blood products as needed to keep Hb>7-8, plt>50k
Chest tubes in place - removal as per CT surgery team
Reviewed above with critical care nursing
Assisted Living Associate/pulmonary service will continue to follow along while patient remains in the CVICU. Once transferred to telemetry then we will sign off.
Critical care statement: A total of 40 minutes of critical care time was provided for this patient today. This includes management of unstable vital signs, evaluation of the patient at bedside, reviewing the patient's pertinent medical records
including radiographs, microbiology, laboratory evaluations, and discussion with primary team, consultants, pharmacy, nutrition, physical therapy, case management, charge nurse, critical care nursing, and respiratory therapy.
Subjective Dataa
Subjective Data
Date of Service:
Date of Service: April 11, 2024
Chief Complaint: Assisted Living Associate Follow Up
Subjective:
Seen and evaluated today at bedside. Sitting in chair no acute distress. Remains on dobutamine drip at 1mcg/kg/min, and insulin drip at 3.5 units/hr. left/right pleural chest tubes + mediastinal chest tubes x [address]. Currently saturating 95%
on room air, heart rate 82 and BP 92/53. He has chest soreness but no shortness of breath unless he takes a deep breath. He denies WATSON, abdominal pain, fevers or chills.
Review of Systems
General: Other (Negative unless mentioned above)
Objective Data
Data Reviewed
Vital Signs / I&O / Oxygen:
Vital Signs
Temp Pulse Resp BP Pulse Ox
97.9 F 87 16 116/57 97
04/11/24 08:00 04/11/24 09:00 04/11/24 09:00 04/11/24 08:00 04/11/24 09:00
Intake and Output
04/10/24 04/11/24 04/12/24
06:59 06:59 06:59
Intake Total 1355.2 / 1355.2 125.1 / 125.1
Output Total 1425 / 1425 110 / 110
Balance -69.8 / -69.8 15.1 / 15.1
SaO2 [CPAP/PSV] 99
SaO2 [SIMV] 100
SaO2 97
Nasal Cannula flow liters per 2
minute
Physical Exam
General: Respiratory Distress (negative), Comfortable, Pain (chest soreness (post-op site)), Chills (negative) and Sweats (negative)
HEENT: Normocephalic and Anicteric
Cardiovascular: S1-S2 and Peripheral Edema (negative)
Respiratory: Wheeze (negative), Crackles (Nobles in anterior left hemithorax), Rhonchi (negative), Non-Labored Respirations and Chest Tube (Right + left pleural chest tubes/mediastinal chest tubes x 2)
GI: Soft, Non Distended, Non Tender and Normal Bowel Sounds
Neurology: AO x 3 and Tremors (negative)
Skin: Warm, Dry and Jaundice (negative)
Labs/Micro/Reports
Lab Data
04/11/24 03:14
04/11/24 03:14
Laboratory Results
04/10/24 04/10/24 04/10/24
14:05 18:23 20:26
PT 18.2 H
INR 1.52
APTT 32.5
pH 7.43 7.32 L 7.37
pCO2 33 L 42 44
pO2 211 H 169 H 215 H
HCO3 21.9 21.6 25.4
O2 Delivery Level None given
Microbiology
04/07/24 12:25 Nose MRSA Screen - Final
No Methicillin Resistant Staphylococcus aureus isolated.
[2024-04-11 08:28] LABS: Glucose - Point of Care 117 mg/dl (70-99)
[2024-04-11] MEDS: NOVOLOG FLEXPEN SC ×2 (08:32→12:38)
[2024-04-11] MEDS: MAGNESIUM OXIDE 500 MG PO (09:07)
[2024-04-11] MEDS: PROZAC 20 MG PO (09:07)
[2024-04-11] MEDS: VITAMIN C 500 MG PO (09:08)
[2024-04-11] MEDS: SENOKOT-S 1 TABLET PO ×2 (09:08→20:16)
[2024-04-11] MEDS: PROTONIX 40 MG PO (09:08)
[2024-04-11] MEDS: CRESTOR 40 MG PO (09:08)
[2024-04-11] MEDS: FEOSOL 325 MG PO (09:08)
[2024-04-11] MEDS: LOW STRENGTH ASPIRIN 81 MG PO (09:09)
[2024-04-11] MEDS: BACTROBAN 2% OINTMENT 1 APPLIC NASAL ×2 (09:09→20:16)
[2024-04-11] MEDS: LIDOCAINE 4% PATCH 1 PATCH TOPICAL (09:09)
[2024-04-11] MEDS: PLAVIX 75 MG PO (09:09)
[2024-04-11] MEDS: ALBUMIN 5% 250 IV (09:10)
[2024-04-11] MEDS: LR 1000 IV (09:11)
[2024-04-11] MEDS: NOVOLIN R INSULIN INFUSION 100 IV (09:18)
[2024-04-11] MEDS: PACERONE PO (09:24)
[2024-04-11] MEDS: LOPRESSOR PO (09:24)
--- NOTE | 2024-04-11 09:42 | PTCARENOTE ---
assumed care of pt from previous shift RN, sinus rhythm on tele, bp stable, levophed weaned off. + peripheral pulses, no edema, epicardial pacing wire in place for back up. Lungs diminished, pox 95% on RA. Coughing and deep breathing encouraged. Pt
medicated for nausea with good relief. Alvarez catheter draining yellow. CT x4 w minimal amount of red drainage. Right IJ cordis w dobutamine infusing at 3mcg as ordered. Insulin titrated per glycemic protocol. LR infusion initiated at 80ml per order.
Pt assisted from chair to bed, resting without complaint.
[2024-04-11 11:04] LABS: Glucose - Point of Care 90 mg/dl (70-99)
[2024-04-11 12:22] LABS: Mixed Venous O2 Saturation 65.3 %
[2024-04-11] MEDS: NSS IV (12:41)
--- NOTE | 2024-04-11 12:56 | PTCARENOTE ---
VSS, sinus rhythm maintained, minimal drainage from CTs, adequate urine output, dobutamine infusing at 2mcg as instructed.
[2024-04-11 13:26] LABS: Glucose - Point of Care 98 mg/dl (70-99)
[2024-04-11 15:09] LABS: Glucose - Point of Care 122 mg/dl (70-99)
--- NOTE | 2024-04-11 16:00 | PTCARENOTE ---
zoraida brooks/c'ed, CT dressing changed, pt assisted OOB to chair. Tolerated well.
[2024-04-11 17:19] LABS: Glucose - Point of Care 91 mg/dl (70-99)
[2024-04-11] MEDS: NOVOLOG FLEXPEN 300 UNITS SC (17:55)
[2024-04-11 18:15] LABS: Mixed Venous O2 Saturation 40.3 %
[2024-04-11 19:17] LABS: Glucose - Point of Care 108 mg/dl (70-99)
[2024-04-11 20:00] LABS: Glucose - Point of Care 92 mg/dl (70-99)
[2024-04-11] MEDS: MAGNESIUM OXIDE PO (20:15)
[2024-04-11 20:50] LABS: Mixed Venous O2 Saturation 59.6 %
--- NOTE | 2024-04-11 21:00 | PTCARENOTE ---
Patient received OOB in chair. Patient A+A+Ox3. No neurological deficits noted. Patient with c/o tiredness and blurry eyes. PUBLICITY MANAGER for CT Surgery, Giuliano Chung, at bedside - Assessed patient and performed NIH Stroke Scale assessment - No deficits
noted. Patient assisted to bed with assist x2. No s/s of respiratory distress. No c/o SOB. Room air. SaO2 97%. Four chest tubes - Mediastinal x2 and Right and Left Pleural - Intact and patent - 10-20 ml red drainage - No air leak, tidaling or
crepitus noted. Chest tube dressing intact. Sinus Tachycardia. Heart rate 100's. Patient continues on Dobutamine gtt per provider orders. Patient with no c/o chest pain, pressure or discomfort. AV Wires. A-Wire off. VVI Rate 40, Output 16,
Sensitivity 0.8. Normoactive bowel sounds. No BM. No c/o nausea. No vomiting. Alvarez catheter - Intact and patent - Light ting, yellow urine - Outputs as documented. Patient with no c/o back or flank pain. Afebrile. Generalized edema.
Sternal Aquacell dressing intact. Right groin dressing intact. Right knee incision - Surgical adhesive - Intact and open to air. RLE puncture site - Intact - Open to air. Positive, palpable pulses. Right I.J. Cordis - Intact and patent - Saline
flush 10 ml/hr. Insulin gtt - Glycemic Protocol. Mixed Venous O2 Saturation sent - 59.6. Assessment as documented.
[2024-04-11] MEDS: NSS 500 IV (22:15)
[2024-04-11] MEDS: DOBUTREX 500 MG 250 IV (22:15)
[2024-04-11 22:29] LABS: Glucose - Point of Care 94 mg/dl (70-99)
[2024-04-12] VITALS (20 sets, daily range): BP systolic 88–122; BP diastolic 48–71; BMI 28.8
[2024-04-12 00:04] LABS: Glucose - Point of Care 97 mg/dl (70-99)
--- NOTE | 2024-04-12 00:30 | PTCARENOTE ---
Patient sleeping without difficulty. No further changes from previous assessment.
[2024-04-12] MEDS: ROXICODONE 5 MG PO ×2 (02:10→20:13)
[2024-04-12] MEDS: DILAUDID 0.25 MG IV (02:14)
[2024-04-12 02:20] LABS: Glucose - Point of Care 86 mg/dl (70-99)
[2024-04-12 03:35] LABS: Glucose - Point of Care 95 mg/dl (70-99)
[2024-04-12 03:57] LABS: Mixed Venous O2 Saturation 75.8 %
[2024-04-12 04:22] LABS: Blood Urea Nitrogen 28 mg/dl (9-20); Calcium 8.2 mg/dl (8.4-10.2); Carbon Dioxide 23 mmol/L (22-30); Chloride 101 mmol/L (98-107); Estimated Creatinine Clearance 52 ml/min; Glucose 102 mg/dl (70-99); Magnesium 2.5 mg/dl (1.6-2.3); Potassium 4.4 mmol/L (3.5-5.1); Sodium 135 mmol/L (135-145); eGFR 52.64
[2024-04-12 04:24] LABS: Hematocrit 23.4 % (39.0-52.0); Hemoglobin 8.2 g/dL (13.0-18.0); Mean Corpuscular Hgb 29.6 pg (27.0-31.0); Mean Corpuscular Volume 84.5 fL (80.0-94.0); Platelet Count 146 10^3/uL (130-400); Red Blood Cell Count 2.77 10^6/uL (4.70-6.10); Red Cell Dist. Width 13.5 % (11.5-14.5); White Blood Cell Count 15.9 10^3/uL (4.8-10.8)
[2024-04-12 04:32] LABS: Glucose - Point of Care 100 mg/dl (70-99)
[2024-04-12] MEDS: DILAUDID 0.5 MG IV (04:44)
--- NOTE | 2024-04-12 04:55 | W.PN.CT ---
Today's Communication / Plan
-
-pod #2
-no issues overnight, feels better after pain medicine
-drips: Dobutamine was off then back on late afternoon, ScvO2 now 69.9% this morning off dobutamine again, Insulin drip continued
-CT output: 2 pleur 40/110, 2 meds 50/130 in 12/24 hrs
-current meds (ASA, Plavix, Crestor, Lopressor, Amio, Protonix)
-encourage IS, OOB
Assessment / Plan
-
- Severe multi-vessel CAD- s/p CABG x 4 (MARK to distal LAD, GSV to D1, GSV to D2, GSV to OM) on 04/10/[address] Rasmussen, pod #2
- Intraop KELSI: LVEF 45% w/ mild global hypokinesis w/ basal inferior segment the worst. Mild concentric LVH. Mild central MR.
- Inferobasal akinesis w/ mild anterolateral hypokinesis
- Ischemic cardiomyopathy, LVEF 42%
- HTN/HLD
- DM II
- Migraines
- Gout
- hx epistaxis
- Skin CA neck/face
- Depression
- Acute postop blood loss anemia - s/p 2 pRBCs
- Acute postop coagulopathy
- Acute postop hypovolemia with subsequent hypervolemia
- Acute postop atelectasis
- Acute postop 1st degree AVB and LBBB - both resolved
- Suspected acute postop pericarditis on ECG
Subjective
Procedure
- s/p CABG x 4 (MARK to distal LAD, GSV to D1, GSV to D2, GSV to OM) on 04/10/[address] Rasmussen
-
Date of Service: April 12, 2024
Objective Data
-
Lab Results
04/12/24 03:47
04/12/24 03:47
PT 18.2 Sec (11.4-14.6) H 04/10/24 14:05
INR 1.52 04/10/24 14:05
APTT 32.5 Sec (23.4-35.0) 04/10/24 14:05
Vital Signs
Vital Signs
Temp Pulse Resp BP Pulse Ox
99.6 F 97 14 113/63 99
04/12/24 04:00 04/12/24 04:30 04/12/24 04:00 04/12/24 04:00 04/12/24 04:00
CT Intake/Output/Weight
04/11/24 04/11/24 04/12/24
06:59 18:59 06:59
Intake Total 370.6 / 1355.2 1284.6 / 1496.2 211.6 / 1496.2
Output Total 665 / 1425 460 / 885 425 / 885
Balance -294.4 / -69.8 824.6 / 611.2 -213.4 / 611.2
SaO2: 99
Physical Exam
-
General: Awake, Oriented and AOx3
Cardiovascular: Regular rate & rhythm, No Murmurs and No Rub
Respiratory: Clear and Equal
Sternum: Stable
Incision: Clean, Dry and Dressing Intact
Extremities: No Edema
Data Reviewed
-
Lab Results: Results Reviewed
Medications: Active Meds Reviewed
Chest X-Ray: Report Reviewed
ECG: Report Reviewed
--- NOTE | 2024-04-12 05:00 | PTCARENOTE ---
Patient A+A+Ox3. No neurological deficits noted. Dobutamine gtt titrated to off per provider order. Patient given CHG bath and linens changed. Chest tube dressing changed. AM lab work collected and sent. Patient resting in bed. OOB in AM.
Assessment/Interventions as documented.
[2024-04-12 05:09] LABS: Glucose - Point of Care 113 mg/dl (70-99)
[2024-04-12 06:15] LABS: Glucose - Point of Care 100 mg/dl (70-99)
[2024-04-12 06:23] LABS: Mixed Venous O2 Saturation 69.9 %
[2024-04-12] MEDS: TYLENOL 1000 MG PO ×3 (06:25→22:59)
[2024-04-12] MEDS: CALCIUM CHLORIDE 10% SYRINGE 60 MG IV (07:29)
[2024-04-12] MEDS: LOPRESSOR 12.5 MG PO ×2 (08:10→20:13)
[2024-04-12] MEDS: MAGNESIUM OXIDE 500 MG PO (08:10)
[2024-04-12] MEDS: PACERONE 200 MG PO ×3 (08:10→22:58)
[2024-04-12] MEDS: PLAVIX 75 MG PO (08:10)
[2024-04-12] MEDS: SENOKOT-S 1 TABLET PO ×2 (08:11→20:13)
[2024-04-12] MEDS: NEURONTIN 100 MG PO ×3 (08:11→22:58)
[2024-04-12] MEDS: CRESTOR 40 MG PO (08:11)
[2024-04-12] MEDS: LOW STRENGTH ASPIRIN 81 MG PO (08:11)
[2024-04-12] MEDS: PROTONIX 40 MG PO (08:11)
[2024-04-12] MEDS: VITAMIN C 500 MG PO (08:11)
[2024-04-12] MEDS: BACTROBAN 2% OINTMENT 1 APPLIC NASAL ×2 (08:11→20:12)
[2024-04-12] MEDS: FEOSOL 325 MG PO (08:11)
[2024-04-12] MEDS: PROZAC 20 MG PO (08:11)
[2024-04-12] MEDS: NOVOLOG FLEXPEN 4 UNITS SC (08:13)
[2024-04-12 08:14] LABS: Glucose - Point of Care 112 mg/dl (70-99)
[2024-04-12] MEDS: LIDOCAINE 4% PATCH 1 PATCH TOPICAL (08:14)
[2024-04-12] MEDS: ZOFRAN 4 MG IV (08:20)
--- NOTE | 2024-04-12 08:50 | W.PN.INTV ---
Today's Communication / Plan
Recommendations
Pain control
Up OOB as tolerated
Encourage incentive spirometer use 10x/hr for at least 4 hrs a day
Being weaned off insulin drip today with lantus bridge, goal BG 140�180
Patient is being downgraded to CVICU�telemetry status today - no additional recommendations at this time. [employer] Supervisor/Pulmonary service will now sign off. Please reconsult if there are any additional questions/concerns, or if patient's respiratory
status deteriorates.
Assessment
-
59-year-old male with history of shortness of breath, abnormal stress test, found to have LV dysfunction. Cardiac catheterization revealed severe multivessel coronary disease with distal left main disease. He is now status post CABG 04/10/2024.
Impression:
S/p CABG: OR date: 04/10/24
Multivessel coronary disease, distal left main disease
Ischemic cardiomyopathy, EF 43% conditions present prior to admission
Anemia
S/p 2U shamar-operative left bundle branch block, per EKG
Conditions present prior to admission
Hyperlipidemia
History of skin cancer
History of left tibial fracture
Family history of cancer (sister)
Plan/recommendations
At this time, patient is doing well. Breathing comfortably on room air; extubated on 04/10/2024 to 6 L/min nasal cannula
Chest x-ray today with suspected medial LLL subsegmental atelectasis, chest exam is clear
Preoperative spirometry normal
Postoperatively EKG unremarkable, left bundle branch noted. This is new compared to preoperative EKG
Moving forward
Continue with supportive care per CT surgery
Maintain SpO2 >90-94%
Up OOB as tolerated
Pain control
Encourage incentive spirometer use
Wean off insulin drip --> given that his 24-hour insulin usage was approximately 65 units, will administer 25% of that dose. Please give 15 units Lantus now and turn off insulin drip 2 hours later, and then start daily Lantus at 15 units with ISS,
keeping BG at goal 140-180
Maintain MAP >65
Dobutamine has been weaned off
Trend hemoglobin
Received 2 units of blood on 04/10/2024
Transfuse blood products as needed to keep Hb>7-8, plt>50k
Chest tubes removed this AM
Reviewed above with critical care nursing
Patient is being downgraded to CVICU�telemetry status today - he is being weaned off of insulin drip, and has already been weaned off dobutamine. He is stable on room air breathing comfortably and hemodynamically stable. No additional
recommendations at this time. [employer] Supervisor/Pulmonary service will now sign off. Thank you for allowing us to be involved in the care of this patient. Please reconsult if there are any additional questions/concerns, or if patient's respiratory
status deteriorates.
Total time spent today was 55 minutes for this encounter. Time includes reviewing laboratory test/imaging results, reviewing pertinent medical records, obtaining and reviewing medical history, performing an appropriate exam, ordering medications,
tests and procedures. Time also includes documentation of this encounter, coordinating patient care and communicating with other healthcare professionals. Total time does not include separately billed tests performed on this date of service.
Subjective Dataa
Subjective Data
Date of Service:
Date of Service: April 12, 2024
Chief Complaint: [employer] Supervisor Follow Up
Subjective:
Seen this AM. He is doing well - resting in bed in NAD. Afebrile overnight. On room air breathing comfortably. Dobutamine drip titrated off this morning. Remains on insulin drip at 0.6 units/hr, and BP 117/67, heart rate 88 and saturating 94%.
He has some mild postoperative site chest pain, otherwise denies SOB, WATSON, abdominal pain, nausea, fevers or chills. Chest tubes x 4 removed this morning as well.
Review of Systems
General: Other (Negative unless mentioned above)
Objective Data
Data Reviewed
Vital Signs / I&O / Oxygen:
Vital Signs
Temp Pulse Resp BP Pulse Ox
98.2 F 86 16 117/67 95
04/12/24 08:00 04/12/24 11:00 04/12/24 08:00 04/12/24 11:00 04/12/24 11:12
Intake and Output
04/11/24 04/12/24 04/13/24
06:59 06:59 06:59
Intake Total 1355.2 / 1355.2 1642.2 / 1642.2 145.9 / 145.9
Output Total 1425 / 1425 965 / 965 95 / 95
Balance -69.8 / -69.8 677.2 / 677.2 50.9 / 50.9
SaO2 [CPAP/PSV] 99
SaO2 [SIMV] 100
SaO2 95
Nasal Cannula flow liters per 2
minute
Physical Exam
General: Respiratory Distress (negative), Comfortable, Pain (chest soreness (post-op site)), Chills (negative) and Sweats (negative)
HEENT: Normocephalic and Anicteric
Cardiovascular: S1-S2 and Peripheral Edema (negative)
Respiratory: Wheeze (negative), Crackles ([place] in anterior left hemithorax), Rhonchi (negative) and Non-Labored Respirations
GI: Soft, Non Distended, Non Tender and Normal Bowel Sounds
Neurology: AO x 3 and Tremors (negative)
Skin: Warm, Dry and Jaundice (negative)
Labs/Micro/Reports
Lab Data
04/12/24 03:47
04/12/24 03:47
--- NOTE | 2024-04-12 10:22 | PTCARENOTE ---
assumed care of pt from previous shift RN, sinus rhythm on tele, vss, + peripheral pulses, no edema noted. Epicardial pacing wires insulated. Lungs diminished d/t poor effort, coughing and deep breathing encouraged. +bs, c/o intermittent nausea,
however, pt rapidly ate entire breakfast and large cup of water. Zofran administered as ordered. Alvarez catheter maintained, draining yellow urine.
Pt assisted from chair to bed. CTx4 removed as ordered.
Insulin gtt maintained as ordered.
Plan of care reviewed w the pt and questions encouraged.
[2024-04-12 11:02] LABS: Glucose - Point of Care 92 mg/dl (70-99)
[2024-04-12] MEDS: LANTUS 0.15 UNITS SC (13:11)
[2024-04-12 13:13] LABS: Glucose - Point of Care 97 mg/dl (70-99)
[2024-04-12] MEDS: NOVOLOG FLEXPEN SC (13:35)
[2024-04-12] MEDS: LASIX 40 MG IV (14:10)
--- NOTE | 2024-04-12 14:19 | PTCARENOTE ---
pt begrudgingly assisted from bed to chair. Explained the importance of post op mobility to patient. pt refuses to walk or preform incentive spirometer at this time. Labs obtained as ordered. Emotional support provided.
[2024-04-12 14:48] LABS: Blood Urea Nitrogen 31 mg/dl (9-20); Calcium 9.4 mg/dl (8.4-10.2); Carbon Dioxide 24 mmol/L (22-30); Chloride 98 mmol/L (98-107); Estimated Creatinine Clearance 52 ml/min; Glucose 109 mg/dl (70-99); Potassium 4.8 mmol/L (3.5-5.1); Sodium 132 mmol/L (135-145); eGFR 52.64
[2024-04-12] MEDS: NOVOLOG FLEXPEN-MODERATE RESISTANCE SC (15:42)
[2024-04-12] MEDS: ROXICODONE 2.5 MG PO (15:43)
--- NOTE | 2024-04-12 16:28 | PTCARENOTE ---
pt agreed to walk. Max assist with 2 nurses, successfully walked ~ 50' before being lowered into a chair. VS remain stable.
[2024-04-12 17:19] LABS: Glucose - Point of Care 186 mg/dl (70-99)
[2024-04-12] MEDS: NOVOLOG FLEXPEN-MODERATE RESISTANCE 1 UNITS SC (17:19)
[2024-04-12] MEDS: MAGNESIUM OXIDE PO (19:56)
--- NOTE | 2024-04-12 20:30 | PTCARENOTE ---
Patient received resting in bed. Patient A+A+Ox3. No neurological deficits noted. Roxicodone 5mg PO for pain management. No s/s of respiratory distress. Room air. 97%. Sleeping - SaO2 92%. 2L O2 HS. Chest tube dressing intact. Sinus
Rhythm. Heart rate 70-80's. AV Wires insulated. Patient with no c/o chest pain, pressure or discomfort. Normoactive bowel sounds. No BM. No c/o nausea. No vomiting. Alvarez catheter - Outputs as documented. Patient with no c/o back or flank
pain. Sternal Aquacell dressing intact. Right groin dressing intact. Right knee incision - Intact - Surgical adhesive. Right lower leg site - Open to air. Positive, palpable pulses. Generalized edema. Right I.J. Cordis - Intact and patent -
Saline flush 10 ml/hr. Afebrile. Assessment as documented.
[2024-04-12 23:05] LABS: Glucose - Point of Care 207 mg/dl (70-99)
[2024-04-13] VITALS (23 sets, daily range): BP systolic 95–137; BP diastolic 55–82; PULSE 70; O2SAT 94–97; BMI 29.1
--- NOTE | 2024-04-13 | PTCARENOTE ---
Patient sleeping without difficulty. No further changes from previous assessment.
--- NOTE | 2024-04-13 04:00 | PTCARENOTE ---
Patient A+A+Ox3. No neurological deficits noted. Patient with no c/o pain or discomfort. AM lab work collected and sent. Patient back to sleep. Assessment/Interventions as documented.
[2024-04-13 04:33] LABS: Mixed Venous O2 Saturation 63.3 %
[2024-04-13] MEDS: NSS 500 IV (04:35)
[2024-04-13 04:58] LABS: Hematocrit 18.8 % (39.0-52.0); Hemoglobin 6.6 g/dL (13.0-18.0); Mean Corp Hgb Conc. 35.1 g/dL (33.0-37.0); Mean Corpuscular Hgb 29.9 pg (27.0-31.0); Mean Corpuscular Volume 85.1 fL (80.0-94.0); Mean Platelet Volume 10.1 fL (7.4-10.4); Platelet Count 142 10^3/uL (130-400); Red Blood Cell Count 2.21 10^6/uL (4.70-6.10); Red Cell Dist. Width 13.1 % (11.5-14.5); White Blood Cell Count 14.6 10^3/uL (4.8-10.8)
[2024-04-13 05:25] LABS: Blood Urea Nitrogen 39 mg/dl (9-20); Calcium 8.1 mg/dl (8.4-10.2); Carbon Dioxide 22 mmol/L (22-30); Chloride 97 mmol/L (98-107); Estimated Creatinine Clearance 48 ml/min; Glucose 195 mg/dl (70-99); Magnesium 2.4 mg/dl (1.6-2.3); Potassium 4.6 mmol/L (3.5-5.1); Sodium 130 mmol/L (135-145); eGFR 48.72
--- NOTE | 2024-04-13 05:40 | W.PN.CT ---
Addendum entered and electronically signed by Jag Rasmussen MD 04/13/24 08:12:
I saw and examined the patient.
The PA's note was reviewed and I agree with the note.
Comment:
Patient is doing well overall. No significant complaints this morning. Chest x-ray reviewed.
Hemodynamically stable off dobutamine infusion since yesterday morning
Unclear source of anemia, but likely represents combination of delusional anemia from volume overload combined with acute operative blood loss
Creatinine 1.6 today from 1.5, maintain Alvarez
Diuresis today
Transfuse 1 unit packed red blood cells
Out of bed, I-S, ambulate
Original Note:
Today's Communication / Plan
-
-pod #3
-no issues overnight
-HR/BP stable without support, ScvO2 63.3% this AM off dobutamine since yesterday morning
-Hgb trend 10.4->8.2-> 6.6, repeat CXR without large effusion, denies relative sx, 1 U PRBC ordered
-Cr 1.5->1.6 today (1.3-1.1 pre op), UOP 535/1020 in 12/24 hrs
-CTs out 04/12
-current meds (ASA, Plavix, Crestor, Lopressor 12.5 mg, Amio, Protonix)
-Appreciate DM recs, on short/long acting insulin
-encourage IS, OOB, 99% on RA
Assessment / Plan
-
- Severe multi-vessel CAD- s/p CABG x 4 (MARK to distal LAD, GSV to D1, GSV to D2, GSV to OM) on 04/10/[address] Rasmussen, pod #3
- Intraop KELSI: LVEF 45% w/ mild global hypokinesis w/ basal inferior segment the worst. Mild concentric LVH. Mild central MR.
- Inferobasal akinesis w/ mild anterolateral hypokinesis
- Ischemic cardiomyopathy, LVEF 42%
- HTN/HLD
- DM II
- Migraines
- Gout
- hx epistaxis
- Skin CA neck/face
- Depression
- Acute postop blood loss anemia - s/p 2 pRBCs
- Acute postop coagulopathy
- Acute postop hypovolemia with subsequent hypervolemia
- Acute postop atelectasis
- Acute postop 1st degree AVB and LBBB - both resolved
- Suspected acute postop pericarditis on ECG
Subjective
Procedure
- s/p CABG x 4 (MARK to distal LAD, GSV to D1, GSV to D2, GSV to OM) on 04/10/[address] Rasmussen
-
Date of Service: April 13, 2024
Objective Data
-
Lab Results
04/13/24 04:21
PT 18.2 Sec (11.4-14.6) H 04/10/24 14:05
INR 1.52 04/10/24 14:05
APTT 32.5 Sec (23.4-35.0) 04/10/24 14:05
Vital Signs
Vital Signs
Temp Pulse Resp BP Pulse Ox
98.6 F 68 16 108/59 98
04/13/24 04:15 04/13/24 05:00 04/13/24 04:15 04/13/24 04:15 04/13/24 04:15
CT Intake/Output/Weight
04/12/24 04/12/24 04/13/24
06:59 18:59 06:59
Intake Total 357.6 / 1642.2 417.3 / 767.3 350 / 767.3
Output Total 505 / 965 645 / 1180 535 / 1180
Balance -147.4 / 677.2 -227.7 / -412.7 -185 / -412.7
SaO2: 98
Physical Exam
-
General: Awake, Oriented and AOx3
Cardiovascular: Regular rate & rhythm and No Murmurs
Respiratory: Clear and Equal
Sternum: Stable
Incision: Clean, Dry and Dressing Intact
Extremities: No Edema and No Erythema
Data Reviewed
-
Lab Results: Results Reviewed
Medications: Active Meds Reviewed
Chest X-Ray: Report Reviewed
ECG: Report Reviewed
[2024-04-13] MEDS: TYLENOL 1000 MG PO ×3 (06:05→23:05)
[2024-04-13 06:09] LABS: Hematocrit 20.6 % (39.0-52.0); Mean Corpuscular Volume 82.4 fL (80.0-94.0); Mean Platelet Volume 10.4 fL (7.4-10.4); Platelet Count 160 10^3/uL (130-400); Red Cell Dist. Width 13.1 % (11.5-14.5); White Blood Cell Count 14.7 10^3/uL (4.8-10.8)
[2024-04-13 06:49] LABS: Glucose - Point of Care 227 mg/dl (70-99)
--- NOTE | 2024-04-13 07:00 | PTCARENOTE ---
Bedside walking rounds report received. Patient seen on rounds resting in bed on 2l nasal canula: titrated to room air and assisted patient oob to chair after 1 unit prbc's were transfused without reaction this am. Somewhat flat affect. Oriented x
3. Neuro intact. Per Dr. Rasmussen on am rounds, will maintain hahn for today for critical I and o's. Temporary epicardial wires a and v insulated and secured. NSR . See flow record for remaining assessments.
--- NOTE | 2024-04-13 07:26 | PN.DE.MGMTRT ---
Insulin Management
- -
04/13/2024: Diabetes Management Consult
59 year old male with PMH: Left tibial fx, HTN, HLD, T2DM, Migraines, Gout, hx epistaxis, Skin CA to neck and face, Depression and SOB with abnormal stress test, found to have LV dysfunction. Cardiac catheterization revealed severe multivessel
coronary disease with distal left main disease.
He is now s/p CABG 04/10/2024. Was transitioned off insulin drip to SQ insulin 04/12 --> Lantus 15 units and moderate corrective insulin with meals. States he was taking Metformin 500mg BID since January, but was not monitoring his blood sugars. A1C 9.2%,
Cr 1.6, eGFR 48.72
Pt awake, A/O x3, pleasant, sitting up in bed, offers no complaints, able to discuss diabetes management
Glucose has remained elevated since transitioning off drip. HS glucose was 207 and FBG 195 (V) and 227 POC
Pt is ordered Lantus 15 units in AM. Noted for TOM with Cr 1.6. Cont to hold Metformin, will resume when Cr at baseline.
Will add Januvia, 1 st does NOW. Cont Lantus 15 units in AM and low corrective with meals
Will return to provide glucose monitor and insulin instructions this afternoon.
Diabetes History
- -
Type of Diabetes: 2 requiring insulin
Pre-Admission Diabetes Regimen
04/12/24 04/13/24
14:09 04:21
Creatinine 1.5 H 1.6 H
Lab Results
Hemoglobin A1c 9.2 % (4.0-5.6) H 04/07/24 12:25
Insulin Pump Settings
IP Diabetes Regimen
04/12/24 04/12/24 04/12/24
08:13 11:00 13:12
Glucose
POC Glucose 112 H 92 97
04/12/24 04/12/24 04/12/24
14:09 17:17 23:04
Glucose 109 H
POC Glucose 186 H 207 H
04/13/24 04/13/24
04:21 06:47
Glucose 195 H
POC Glucose 227 H
Meal type: Dinner
Meal type: Breakfast
Amount consumed: 55%
Patient Education
--- NOTE | 2024-04-13 07:41 | W.PN.CD ---
Today's Communication / Plan
-
Increase furosemide to 40 mg IV BID.
Monitor renal function, oxygenation with diuretics.
Not quite ready for GDMT.
Impression / Plan
-
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
#CAD
-Chronic.
-S/P CABG x4 (PRAKASH to LAD, SVG to D1, SVG to D2, SVG to OM) with Dr. Rasmussen, 04/10/2024.
-Continue amiodarone, aspirin, clopidogrel, metoprolol and rosuvastatin.
-Encourage incentive spirometry and ambulation.
-Anemia is concerning - no obvious blood loss. There is some degree of dilution.
-Agree with transfusion.
-The patient is on an inefficient part of his Serjio-Starling curve. Continue diuresis with furosemide 40 mg IV BID. Low threshold to change to bumetanide gtt to avoid BP peaks/valleys.
-With diuresis, I suspect BP and renal function will paradoxically improve.
#ICMO/HFmEF
-New diagnosis.
-LVEF 45% with hypokinetic inferior base.
-Diuresis as above.
-Continue metoprolol.
-Hold further GDMT (sacubitril-valsartan, SGLT2i, MRA) until BP/renal function has stabilized.
#HTN
-Chronic, stable.
-Continue metoprolol.
-Further titration when euvolemic.
#DM2
-Chronic, stable.
-Hold metformin until renal function stabilizes.
#TOM
-Acute.
-Cr 1.6 <-- 1.5.
-I suspect cardiorenal syndrome.
-Monitor with diuresis.
Subjective/Interval History:
Hbg drifted down to 6.6, prompting transfusion.
Weight is up 7.2 kg (!) from miguel on 04/10/2024 (88.5 <-- 85.9 <-- 81.3).
SaO2 98% on 2LNC.
Furosemide 40 mg IV given yesterday afternoon.
Creatinine 1.6 this morning.
DATA:
Intraprocedure KELSI, 04/10/2024:
CONCLUSIONS
Overall LVEF is approximately 45%.
Mild global hypokinesis. Basal inferior appears to be the worst moving
segment.
Mild concentric left ventricular hypertrophy.
Normal diastolic function.
AV is tricuspid with mildly thickened cusps.
Mild mitral regurgitation.
MR jet is central likely due to mild annular dilation.
Moderate sessile atheroma seen in the descending aorta and distal arch.
POST OPERATIVE FINDINGS
The patient underwent a CABG on bypass. Postop rhythm remains sinus. RV and
LV function appear more vigorous. Overall LVEF is now approximately 55% with
improved regional wall motion. Basal inferior wall appears to move normally.
Mild central MR is unchanged. TV, PV, and AV show normal function. Aortic
scan is unchanged.
Cardiac Catheterization, 03/18/2024:
CORONARY ANGIOGRAPHY
Dominance: Right
Left Main: 60-70% distal stenosis at the trifurcation
LAD: The LAD is diffusely diseased throughout its course. There is diffuse pattern precludes segmental stenosis estimates. The most severe segment of disease involves the distal LAD. D1 is small. D2 is large with 70% ostial stenosis
Circumflex: The ramus intermedius is large with long 60% proximal stenosis. The circumflex is occluded distal to the takeoff of a very small OM1. The larger OM 2 fills retrograde via left to left collaterals
RCA: The RCA is proximally occluded. The RPDA appears to be a medium sized diffusely diseased vessel filling via [id number] collaterals
PFT's, 04/07/2024:
Impression:
No evidence of obstruction or restriction. Normal spirometry. Consider full PFT's if additional lung function evaluation is needed.
Physical Exam
Vital Signs/Labs
Vital Signs
Temp Pulse Resp BP Pulse Ox
37.0 C 68 16 108/59 98
04/13/24 04:15 04/13/24 05:00 04/13/24 04:15 04/13/24 04:15 04/13/24 05:44
04/11/24 04/12/24 04/13/24
11:59 11:59 11:59
Actual Weight 85.9 kg 88.5 kg
04/13/24 04:21
PT 18.2 Sec (11.4-14.6) H 04/10/24 14:05
INR 1.52 04/10/24 14:05
APTT 32.5 Sec (23.4-35.0) 04/10/24 14:05
Magnesium 2.4 mg/dl (1.6-2.3) H 04/13/24 04:21
Physical Exam
Constitutional: No acute distress and Comfortable
EENT: Anicteric and Moist mucous membranes
Cardiovascular: Rhythm & rate is regular, JVD pressure is normal, Pedal edema present, S1S2 is normal and Murmur/rub/gallop absent
Respiratory: Respiratory effort normal and Other (Decreased in the bilateral bases.)
GI: Soft and Distention absent
Neuro/Psych: AO x 3
Data Reviewed
-
Date of Service: April 13, 2024
Medical Decision Making: Reviewed Test Results, Independent Historian Assessment, Test Interpretation and Review of Case with other Provider
EKG: Tracing Personally Visualized and interpreted and Report Reviewed by me
Echo: Report Reviewed by me
X-Ray/CT/US/MRI/NUC/PET: Image Personally Visualized and interpreted and Report Reviewed by me
Medical Tests (PFT, Pathology etc): Report Reviewed by me
Labs: Labs Reviewed by me
Old Records: Reviewed
[2024-04-13] MEDS: CALCIUM CHLORIDE 10% SYRINGE 60 MG IV (08:13)
[2024-04-13] MEDS: PLAVIX 75 MG PO (08:31)
[2024-04-13] MEDS: NEURONTIN 100 MG PO ×3 (08:31→23:05)
[2024-04-13] MEDS: MAGNESIUM OXIDE 500 MG PO (08:32)
[2024-04-13] MEDS: CRESTOR 40 MG PO (08:32)
[2024-04-13] MEDS: PROTONIX 40 MG PO (08:32)
[2024-04-13] MEDS: PROZAC 20 MG PO (08:32)
[2024-04-13] MEDS: SENOKOT-S 1 TABLET PO ×2 (08:32→19:52)
[2024-04-13] MEDS: LOPRESSOR 12.5 MG PO (08:32)
[2024-04-13] MEDS: VITAMIN C 500 MG PO (08:32)
[2024-04-13] MEDS: PACERONE 200 MG PO ×3 (08:32→23:05)
[2024-04-13] MEDS: FEOSOL 325 MG PO (08:32)
[2024-04-13] MEDS: LOW STRENGTH ASPIRIN 81 MG PO (08:32)
[2024-04-13] MEDS: LASIX 40 MG IV ×2 (08:33→14:04)
[2024-04-13] MEDS: LIDOCAINE 4% PATCH TOPICAL (08:33)
[2024-04-13] MEDS: BACTROBAN 2% OINTMENT 1 APPLIC NASAL ×2 (08:41→19:52)
[2024-04-13] MEDS: JANUVIA 100 MG PO (08:41)
[2024-04-13 09:19] LABS: Glucose - Point of Care 224 mg/dl (70-99)
[2024-04-13] MEDS: NOVOLOG FLEXPEN-MODERATE RESISTANCE 3 UNITS SC (09:23)
[2024-04-13] MEDS: LANTUS 0.15 UNITS SC (09:24)
--- NOTE | 2024-04-13 12:00 | PTCARENOTE ---
No acute changes. Remains oob in chair on room air. NSR. Diuresing. Additiobnal lasix IV to be given per order.
[2024-04-13 12:08] LABS: Glucose - Point of Care 280 mg/dl (70-99)
[2024-04-13] MEDS: NOVOLOG FLEXPEN-MODERATE RESISTANCE 5 UNITS SC (12:12)
--- NOTE | 2024-04-13 14:29 | CM ---
Reviewed chart. Met with Mr. Carmichael to review discharge plans. He states he is feeling okay. He states he ambulated today 75 feet today. We reviewed a home visit by the Cardiothoracic Transitional Care Nurse. He is agreeable to a home visit.
Prior to admission he resides with his spouse and son in a two story home with three steps to enter. He has a full flight of steps to get to bedroom/full bathroom. He has a powder room on the first floor. Prior to admission he was independent with
ambulation and adls. He does not have any DME in the home. He has a prescription plan and uses [facility]. Will need to see his current functional level to see if he will have any skilled needs. Medical work-up in progress. The discharge plan
is to return home with his spouse and son and a home visit by the Cardiothoracic Transitional Care Nurse when medically stable.
--- NOTE | 2024-04-13 15:20 | PTCARENOTE ---
Ambulated in hallway: a bit off balance: see post activity vitals post 125feet ambulated: right leg very ecchymotic
[2024-04-13 15:26] LABS: Blood Urea Nitrogen 42 mg/dl (9-20); Calcium 8.4 mg/dl (8.4-10.2); Carbon Dioxide 22 mmol/L (22-30); Chloride 95 mmol/L (98-107); Estimated Creatinine Clearance 48 ml/min; Glucose 272 mg/dl (70-99); Potassium 4.2 mmol/L (3.5-5.1); Sodium 129 mmol/L (135-145); eGFR 48.72
[2024-04-13 15:38] LABS: Hematocrit 24.6 % (39.0-52.0); Hemoglobin 8.6 g/dL (13.0-18.0)
--- NOTE | 2024-04-13 16:29 | PN.DE ---
Diabetes Education
- -
Diabetes Education consult
59 year old male with A1C of 9.2%. 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
Met with pt to provide diabetes education- monitor instructions and insulin instructions and was unsuccessful. Pt states he is not feeling well, states his brain feels foggy and is requesting I return tomorrow when his is at bedside. Will try
again tomorrow at 10am when is present.
[2024-04-13] MEDS: NOVOLOG FLEXPEN-HIGH RESISTANCE 7 UNITS SC (16:58)
[2024-04-13 17:00] LABS: Glucose - Point of Care 257 mg/dl (70-99)
--- NOTE | 2024-04-13 17:35 | PTCARENOTE ---
Addendum entered by Tee Carmichael RN 04/13/24 17:44:
Also educated as to water weight gain in 24hours
Original Note:
Patient educated on insulin scale and how novolog insulin pens work/setting dosage. Needs reinforcement. Patient also educated on fluid intake excess and how it can affect sodium levels: instructed to moderate water intake
[2024-04-13] MEDS: LASIX 60 MG IV (17:56)
[2024-04-13] MEDS: TOPROL XL 12.5 MG PO (19:52)
--- NOTE | 2024-04-13 20:00 | PTCARENOTE ---
Assumed care of patient at 1900. Patient found oob in chair at time of assessment. Patient is AOx4, follows commands appropriately, moves all extremities. Lung sounds are diminished throughout, saO2 96% on RA. Heart sounds have a regular rate and
rhythm. Patient is SR on the monitor. A+V wires are present but insulated. Patient has normal palpable radial pulses, and weak but palpable dorsalis pedis pulses. +1 generalized anasarca is present. Patient has round soft abdomen with active BS and
hahn in place draining clear yellow urine. Patient has sternal incision with aquacell dressing that is CDI, abd dressing over CT wounds that is CDI, a R groin puncture with 4x4 dressing and ecchymosis surrounding it that is CDI, and a RLE incision
that is approx with surg adhesive NIMA and ecchymotic. Patient has a R IJ cordis and R hand PIV. Patient has unsteady gait, but can ambulate with assistx1. VSS.
--- NOTE | 2024-04-13 23:00 | PTCARENOTE ---
Patient reassessed. VSS. Remains SR on the monitor.
[2024-04-13 23:11] LABS: Glucose - Point of Care 209 mg/dl (70-99)
[2024-04-14] VITALS (7 sets, daily range): BP systolic 106–141; BP diastolic 59–66; PULSE 72; O2SAT 99; BMI 31.9; BMI 28.3
--- NOTE | 2024-04-14 03:00 | PTCARENOTE ---
Patient reassessed. VSS. Remains SR on the monitor. No c/o pain. AM labs obtained.
[2024-04-14 03:35] LABS: Ionized Calcium 1.15 mMOL/L (1.15-1.33)
[2024-04-14 03:37] LABS: Hematocrit 23.2 % (39.0-52.0); Hemoglobin 8.5 g/dL (13.0-18.0); Mean Corp Hgb Conc. 36.6 g/dL (33.0-37.0); Mean Corpuscular Hgb 28.6 pg (27.0-31.0); Mean Corpuscular Volume 78.1 fL (80.0-94.0); Mean Platelet Volume 9.8 fL (7.4-10.4); Platelet Count 177 10^3/uL (130-400); Red Blood Cell Count 2.97 10^6/uL (4.70-6.10); Red Cell Dist. Width 13.2 % (11.5-14.5); White Blood Cell Count 12.2 10^3/uL (4.8-10.8)
[2024-04-14 04:00] LABS: Blood Urea Nitrogen 42 mg/dl (9-20); Calcium 8.4 mg/dl (8.4-10.2); Carbon Dioxide 24 mmol/L (22-30); Chloride 96 mmol/L (98-107); Estimated Creatinine Clearance 48 ml/min; Glucose 186 mg/dl (70-99); Magnesium 2.1 mg/dl (1.6-2.3); Potassium 3.7 mmol/L (3.5-5.1); Sodium 133 mmol/L (135-145); eGFR 48.72
--- NOTE | 2024-04-14 04:37 | W.PN.CT ---
Today's Communication / Plan
-
-No major issues overnight. Hemodynamically and neurologically intact
-Off all drips
-Received 1u PRBC yesterday for h/h 7.0/20.6, 8.5/23.2 today
-Postop TOM 1.6, was 1.6 yesterday, 1.1-1.3 preop. May benefit from higher BP for perfusion. Still has hahn catheter
-Unable to resume Metformin given TOM, unable to start GDMT
-Diabetes management following
-Postop hyponatremia, 129 yesterday, 133 today. Cont. diuresis, fluid restriction. Diuresed 4 L/24hrs
-D/C cordis (kinked)
-F/U 2-view cxr
-Transitioned Lopressor to Toprol XL given ICM
-Cont. current meds (ASA, Plavix, Crestor, Toprol XL, Amio, Protonix)
-Encouarage use of IS
-OOB into chair/Ambulate
-Will cut A/V temporary PW prior to d/c home
-Home likely tomorrow
Assessment / Plan
-
- Severe multi-vessel CAD- s/p CABG x 4 (MARK to distal LAD, GSV to D1, GSV to D2, GSV to OM) on 04/10/[address] Rasmussen, pod #4
- Intraop KELSI: LVEF 45% w/ mild global hypokinesis w/ basal inferior segment the worst. Mild concentric LVH. Mild central MR.
- Inferobasal akinesis w/ mild anterolateral hypokinesis
- Ischemic cardiomyopathy, LVEF 42%
- HTN/HLD
- DM II
- Migraines
- Gout
- hx epistaxis
- Skin CA neck/face
- Depression
- Acute postop blood loss anemia - s/p 3 pRBCs
- Acute postop coagulopathy
- Acute postop hypovolemia with subsequent hypervolemia
- Acute postop atelectasis
- Acute postop 1st degree AVB and LBBB - both resolved
- Suspected acute postop pericarditis on ECG
- Acute postop TOM
Discussed patient care with: Cardiology, Nursing, Respiratory Therapy, Pharmacy and Care Team
Subjective
Procedure
- s/p CABG x 4 (AMRK to distal LAD, GSV to D1, GSV to D2, GSV to OM) on 04/10/[address] Rasmussen
-
Date of Service: April 14, 2024
Pt c/o mild incisional pain, otherwise feels well
Objective Data
-
Lab Results
04/14/24 03:28
04/14/24 03:28
PT 18.2 Sec (11.4-14.6) H 04/10/24 14:05
INR 1.52 04/10/24 14:05
APTT 32.5 Sec (23.4-35.0) 04/10/24 14:05
Vital Signs
Vital Signs
Temp Pulse Resp BP Pulse Ox
98.1 F 76 18 119/65 94
04/13/24 15:26 04/14/24 03:00 04/13/24 15:26 04/13/24 23:05 04/13/24 23:05
CT Intake/Output/Weight
04/13/24 04/13/24 04/14/24
06:59 18:59 06:59
Intake Total 360 / 787.3 1645 / 1645
Output Total 835 / 1540 1610 / 4060 2450 / 4060
Balance -475 / -752.7 35 / -2415 -2450 / -2415
SaO2: 94 (RA)
Physical Exam
-
General: Awake, Oriented and AOx3
Cardiovascular: Regular rate & rhythm, No Murmurs, No Rub and No Gallop
Respiratory: Decreased Breath Sounds (at bases, otherwise clear)
Sternum: Stable
Incision: Clean, Dry, Intact and Dressing Intact
Extremities: No Edema
Data Reviewed
-
Lab Results: Results Reviewed
Medications: Active Meds Reviewed
Chest X-Ray: Report Reviewed and Image Reviewed
ECG: Report Reviewed and Image Reviewed
[2024-04-14] MEDS: CALCIUM GLUCONATE 100 IV (05:55)
[2024-04-14] MEDS: TYLENOL 1000 MG PO ×2 (05:55→14:33)
[2024-04-14] MEDS: KCL 40 MEQ PO (06:10)
--- NOTE | 2024-04-14 07:52 | PN.DE.MGMTRT ---
Insulin Management
- -
04/14/2024: Diabetes Management Consult Follow up
Patient admitted 04/10 for CABG. PMH: Left tibial fx, HTN, HLD, T2DM, Migraines, Gout, hx epistaxis, Skin CA to neck and face, Depression and SOB with abnormal stress test, found to have LV dysfunction. Cardiac catheterization revealed severe
multivessel coronary disease with distal left main disease. Prior to admission was taking Metformin 500mg BID since January, but was not monitoring his blood sugars. A1C 9.2%, Cr 1.6, eGFR 48.72
Transitioned off insulin drip to SQ insulin 04/12 --> Lantus 15 units and moderate corrective insulin with meals.
Pt awake, A/O x3, pleasant, sitting up in bed, offers no complaints, able to discuss diabetes management. at bedside and supportive.
POD 4 s/p CABG x 4. Glucose has remained elevated since transitioning off drip. 04/13 glucose range 209 to 280. Will increase AM lantus to 18 units.
CR this AM 1.6, eGFR 48.72, continue holding Metformin, will resume when Cr at baseline.
Januvia 100 mg started 04/13. Will increase AM lantus from 15 units to 18 units in AM and high corrective with meals. Discussed starting Farxiga 10 mg daily with CV FORESTRY FIRE AIDE, to start this AM.
Provided and instructed on use of Contour next glucose monitor with fair return demonstration, will assist at home. Instructed patient on insulin action, prep and injection technique for both novolog and lantus. Good return demonstration but
will need reinforcement. Patient able to state the difference between fast acting and long acting insulin. Discussed with patients nurse, nursing to have patient prepare and administer all insulin injections with nursing supervision. Provided
home pen needles. Printed instructions with pictures for each step of insulin administration.
Will follow.
Diabetes History
- -
Type of Diabetes: 2
Pre-Admission Diabetes Regimen
04/13/24 04/14/24
14:53 03:28
Creatinine 1.6 H 1.6 H
Lab Results
Hemoglobin A1c 9.2 % (4.0-5.6) H 04/07/24 12:25
Insulin Pump Settings
IP Diabetes Regimen
04/13/24 04/13/24 04/13/24
09:17 12:06 14:53
Glucose 272 H
POC Glucose 224 H 280 H
04/13/24 04/13/24 04/14/24
16:56 23:10 03:28
Glucose 186 H
POC Glucose 257 H 209 H
Meal type: Breakfast
Amount consumed: 100%
Patient Education
[2024-04-14 08:22] LABS: Glucose - Point of Care 185 mg/dl (70-99)
[2024-04-14] MEDS: LASIX 40 MG IV (08:56)
[2024-04-14] MEDS: LOW STRENGTH ASPIRIN 81 MG PO (08:57)
[2024-04-14] MEDS: MAGNESIUM OXIDE 500 MG PO (08:57)
[2024-04-14] MEDS: PROZAC 20 MG PO (08:57)
[2024-04-14] MEDS: PLAVIX 75 MG PO (08:57)
[2024-04-14] MEDS: JANUVIA 100 MG PO (08:57)
[2024-04-14] MEDS: CRESTOR 40 MG PO (08:57)
[2024-04-14] MEDS: NEURONTIN 100 MG PO ×2 (08:57→15:50)
[2024-04-14] MEDS: TOPROL XL 25 MG PO (08:58)
[2024-04-14] MEDS: VITAMIN C 500 MG PO (08:58)
[2024-04-14] MEDS: SENOKOT-S 1 TABLET PO (08:58)
[2024-04-14] MEDS: PROTONIX 40 MG PO (08:58)
[2024-04-14] MEDS: PACERONE 200 MG PO ×2 (08:58→15:50)
[2024-04-14] MEDS: FEOSOL 325 MG PO (08:58)
[2024-04-14] MEDS: BACTROBAN 2% OINTMENT 1 APPLIC NASAL (08:59)
[2024-04-14] MEDS: NOVOLOG FLEXPEN-HIGH RESISTANCE 2 UNITS SC (08:59)
--- NOTE | 2024-04-14 09:04 | W.PN.CD ---
Addendum entered and electronically signed by Faisal Pang DO 04/15/24 16:57:
Response to CDI: Ischemic cardiomyopathy (LVEF 45%) is chronic.
Original Note:
Today's Communication / Plan
-
Continue diuresis.
Monitor renal function.
Ambulate.
Incentive spirometry.
Likely GDMT tomorrow if renal function stable/improved with diuretics.
Impression / Plan
-
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
#CAD
-Chronic.
-S/P CABG x4 (PRAKASH to LAD, SVG to D1, SVG to D2, SVG to OM) with Dr. Rasmussen, 04/10/2024.
-Continue amiodarone, aspirin, clopidogrel, metoprolol and rosuvastatin.
-Encourage incentive spirometry and ambulation.
-Anemia is improving with transfusion and diuresis.
-The patient remains on an inefficient part of his Serjio-Starling curve. Continue diuresis with furosemide 40 mg IV BID.
#ICMO/HFmEF
-New diagnosis.
-LVEF 45% with hypokinetic inferior base.
-Diuresis as above.
-Continue metoprolol succinate.
-Hold further GDMT (sacubitril-valsartan, SGLT2i, MRA) until BP/renal function has stabilized.
#HTN
-Chronic, stable.
-Continue metoprolol.
-Further titration when euvolemic.
#DM2
-Chronic, stable.
-Hold metformin until renal function stabilizes.
#TOM
-Acute.
-Cr 1.6 <-- 1.5.
-I suspect cardiorenal syndrome.
-Monitor with diuresis.
Subjective/Interval History:
I suspect typo in the weights as reported weight has risen 8.6 kg from yesterday (97.9 kg <-- 89.3 kg <-- 88.5 kg <-- 85.5 kg) while we are actively diuresing the patient.
Blood pressure is improving with diuresis and transfusion.
Hbg increased from 7.0 --> 8.6.
Na improved from 129 --> 133.
Metoprolol tartrate changed to succinate as of this morning.
DATA:
Intraprocedure KELSI, 04/10/2024:
CONCLUSIONS
Overall LVEF is approximately 45%.
Mild global hypokinesis. Basal inferior appears to be the worst moving
segment.
Mild concentric left ventricular hypertrophy.
Normal diastolic function.
AV is tricuspid with mildly thickened cusps.
Mild mitral regurgitation.
MR jet is central likely due to mild annular dilation.
Moderate sessile atheroma seen in the descending aorta and distal arch.
POST OPERATIVE FINDINGS
The patient underwent a CABG on bypass. Postop rhythm remains sinus. RV and
LV function appear more vigorous. Overall LVEF is now approximately 55% with
improved regional wall motion. Basal inferior wall appears to move normally.
Mild central MR is unchanged. TV, PV, and AV show normal function. Aortic
scan is unchanged.
Cardiac Catheterization, 03/18/2024:
CORONARY ANGIOGRAPHY
Dominance: Right
Left Main: 60-70% distal stenosis at the trifurcation
LAD: The LAD is diffusely diseased throughout its course. There is diffuse pattern precludes segmental stenosis estimates. The most severe segment of disease involves the distal LAD. D1 is small. D2 is large with 70% ostial stenosis
Circumflex: The ramus intermedius is large with long 60% proximal stenosis. The circumflex is occluded distal to the takeoff of a very small OM1. The larger OM 2 fills retrograde via left to left collaterals
RCA: The RCA is proximally occluded. The RPDA appears to be a medium sized diffusely diseased vessel filling via [id number] collaterals
PFT's, 04/07/2024:
Impression:
No evidence of obstruction or restriction. Normal spirometry. Consider full PFT's if additional lung function evaluation is needed.
Physical Exam
Vital Signs/Labs
Vital Signs
Temp Pulse Resp BP Pulse Ox
36.8 C 72 20 111/59 94
04/14/24 03:00 04/14/24 08:58 04/14/24 03:00 04/14/24 08:58 04/14/24 05:31
04/12/24 04/13/24 04/14/24
11:59 11:59 11:59
Actual Weight 88.5 kg 89.3 kg 97.9 kg
04/14/24 03:28
04/14/24 03:28
PT 18.2 Sec (11.4-14.6) H 04/10/24 14:05
INR 1.52 04/10/24 14:05
APTT 32.5 Sec (23.4-35.0) 04/10/24 14:05
Magnesium 2.1 mg/dl (1.6-2.3) 04/14/24 03:28
Physical Exam
Constitutional: No acute distress and Comfortable
EENT: Anicteric and Moist mucous membranes
Cardiovascular: Rhythm & rate is regular, Pedal edema present, JVD present, S1S2 is normal and Murmur/rub/gallop absent
Respiratory: Respiratory effort normal and Other (Decreased in the bilateral bases.)
GI: Soft, Distention absent, Flat, Non tender and Normal bowel sounds
Neuro/Psych: AO x 3
Data Reviewed
-
Date of Service: April 14, 2024
Medical Decision Making: Reviewed Test Results, Independent Historian Assessment, Test Interpretation and Review of Case with other Provider
EKG: Tracing Personally Visualized and interpreted and Report Reviewed by me
Echo: Tracing Personally Visualized and interpreted and Report Reviewed by me
X-Ray/CT/US/MRI/NUC/PET: Image Personally Visualized and interpreted and Report Reviewed by me
Medical Tests (PFT, Pathology etc): Report Reviewed by me
Labs: Labs Reviewed by me
Old Records: Reviewed
[2024-04-14] MEDS: LIDOCAINE 4% PATCH TOPICAL (09:08)
--- NOTE | 2024-04-14 09:21 | PTCARENOTE ---
Patient received from shift superintendent resting oob in chair, AAO X 3, states pain controlled. NSR via cm, SaO2 @ 98% on RA. RIJ Cordis present. Epicardial A+V wires, insulated to chest wall. All procedural sites stable. Alvarez catheter to gravity. Patient
updated to plan of care for the day, in agreement. See work list for full assessment and interventions performed.
[2024-04-14] MEDS: LANTUS 0.18 UNITS SC (09:35)
--- NOTE | 2024-04-14 10:31 | PTCARENOTE ---
Alvarez catheter, Cordis d/c'd as ordered. Temporary epicardial pacing wires cut by MERLINE Anderson w/RN assist. Patient tolerated all procedures well, resting comfortably.
[2024-04-14] MEDS: NSS IV (10:41)
[2024-04-14] MEDS: NOVOLOG FLEXPEN-HIGH RESISTANCE 7 UNITS SC (11:43)
[2024-04-14] MEDS: FARXIGA 10 MG PO (11:44)
[2024-04-14 11:45] LABS: Glucose - Point of Care 253 mg/dl (70-99)
--- NOTE | 2024-04-14 12:59 | PTCARENOTE ---
Received handoff from Lissa RN at 1100; AAOx4 and responds to spontaneous stimulation; NSR on monitor; VSS; DP and radial pulses present; Lungs diminished at bases; SpO2 93-96% on RA; Pt had small unmeasured BM and urine; All incisions CDI; PIVx1
right Wrist flushing appropriately; See nursing documentation for further details
--- NOTE | 2024-04-14 15:16 | W.DCSUMMARY ---
Discharge Summary
Discharge Data
Date of Admission: 04/10/24
Date of Discharge: 04/14/24
-
Pending Results: No
Hospital Course
Primary care physician: Sidney Booker
Outpatient excavating contractor: Delmar Cain
Inpatient consultants: [facility], Diabetes nurse practitioner
Procedures:
1. Coronary artery bypass grafting
Primary Diagnosis:
1. Coronary artery disease
Secondary Diagnoses:
1. Hypertension
2. Hyperlipidemia
3. Type 2 diabetes-uncontrolled (A1C 9.2)
4. Gout
5. Skin cancer could paced
6. Depression
7. Acute surgical blood loss anemia�expected
8. Acute postoperative TOM
HPI: 59-year-old male was electively admitted on 04/10/2024 for coronary artery artery bypass grafting due to left main/triple-vessel coronary disease
Hospital course: Patient underwent CABG x 4 (MARK to distal LAD, GSV to D1, GSV to D2, GSV to OM) with Dr. Jag Rasmussen. Patient received 2 units of packed red blood cells intraoperatively. He returned to CVICU on dobutamine, Levophed, insulin,
Precedex patient is extubated at 1845 on day of surgery. Postop EKG showed new left bundle branch block which resolved on the EKG from postop day #1. Aspirin and Plavix were initiated. Patient was weaned off dobutamine on postoperative day #2.
Insulin drip was weaned off and Lantus initiated. Patient was diuresed with 40 mg of IV Lasix to mediastinal send a right and left pleural chest tube were discontinued. On postoperative day #3, 1 unit of PRBCs was given for the globin of 7.0.
Alvarez was maintained due to creatinine of 1.6 and continue diuresis. On postoperative day #4, the creatinine level plateaued at 1.6 and hemoglobin increased to 8.5. Metformin continued to be held due to elevated creatinine and will be reevaluated
for need at outpatient primary care follow-up. The Right IJ cordis was removed and temporary epicardial pacing wires were clipped to skin level. The Alvarez was removed and patient voided without difficulty. Patient ambulated in halls with cardiac
rehab. Aquacel dressing was removed and sternotomy incision noted to be clean dry and intact. Patient was evaluated by diabetes nurse practitioner and patient will be discharged on Lantus Solostar, Januvia and Farxiga. Discount coupon for Farxiga
was given to the patient on discharge.
Home medication changes:
Stop:
Ibuprofen and metformin due to elevated creatinine
Nitroglycerin
New meds:
Clopidogrel
Farxiga
Lantus Solostar
Januvia
Protonix while on Plavix
Discharge Plan
-
Patient Disposition: Home (Routine Discharge)
Discharge Diagnosis/Procedures: CAD/CABG
Condition: Good
Diet: Low Fat, Low Cholesterol, Low Sodium and Diabetic, Carb Controlled
Activity: No strenuous activity
Driving Restrictions: Not until seen by your Dr
Bathing Restrictions: OK to Shower
Blood Work: BMP in one week/ Call results to office
Other Services: Cardiac Rehab
Specialty Instructions: Weigh Daily- Call MD for wt gain/loss 3 lbs overnight/5 lbs in 1 week
Activity Restrictions/Additional Instructions:
ACTIVITY:
-No strenuous activity: no heavy lifting, pushing, pulling anything over 15 pounds for one month
-continue to use stairs as tolerated
DRIVING RESTRICTIONS:
-No driving for one month or until approved by your surgeon
WOUND CARE:
-Shower daily. Use soap & water.
-No lotions, creams or powders on incision area.
DIET:
-continue a low fat/low cholesterol diet.
-IF you are diabetic, continue carb controlled diet.
CARDIAC REHAB:
-Please make appointment to start in 5-6 weeks with your local hospital program. (See Cardiac Rehabilitation Discharge Booklet).
SPECIALTY INSTRUCTIONS:
-Weigh yourself daily. Call your physician for any weight gain of 3 lbs overnight or 5 lbs in one week.
-REPORT any clicking noise or uneven appearance of your sternum to your surgeon immediately.
-If you smoke, you are instructed to quit. The [place] smoking hotline phone number is [phone]
Referrals:
CT Transitional Care Nurse [Outside] - in one to two days
(
The Cardiothoracic Transitional Care Nurse will call you to set up a visit in 1-2 days.)
[facility]. Cardiac Rehab [Outside] - 05/18/24 1:00 pm
(Cardiac Rehab Orientation appointment is on SaturdayMay 18 @ 1:00pm
The Cardiac Rehab gym is located on the first floor of the [facility].)
Sidney Booker MD [Family Provider] - in four to six weeks (Please make an appointment in four to six weeks. )
Delmar Cain DO [Non-Admitting Privileges] - 05/21/24 11:00 am
Jag Rasmussen MD [Active] - 05/12/24 2:30 pm
Additional Discharge Medication Instructions: Stop ibuprofen
Stop metformin until seen by your doctor
Stop nitroglycerin SL
Prescriptions:
New
Januvia 100 mg Tablet
100 mg PO DAILY Qty: 30 2RF
clopidogrel 75 mg Tablet
75 mg PO DAILY Qty: 30 3RF
pantoprazole 40 mg Tablet,Delayed Release (Dr/Ec)
40 mg PO DAILY Qty: 30 3RF
acetaminophen 325 mg Tablet
650 mg PO Q4HPRN PRN (Reason: mild pain,headache,temp >101F ) Qty: 0 0RF
sennosides-docusate sodium 8.6-50 mg Tablet
1 tab PO Q12 Qty: 20 1RF
dapagliflozin propanediol 10 mg Tablet
10 mg PO DAILY Qty: 30 3RF
(DME) Contour Next Test Strips Strip
Qty: 200 0RF
Rx Instructions:
Test blood sugar before each meal and bedtime As Directed
E11.65
insulin glargine [Lantus Solostar U-100 Insulin] 100 unit/mL (3 mL) Insulin Pen
18 unit SC DAILY Qty: 5 0RF
Rx Instructions:
Take at 10 AM each morning
(DME) pen needle, diabetic [BD Ultra-Fine Susy Pen Needle] 32 gauge x ' Needle
Qty: 100 0RF
Rx Instructions:
Use with lantus pen at 10am each morning As Directed
(DME) lancets [Color Lancets] 21 gauge Misc
Qty: 200 0RF
Rx Instructions:
Test before each meal and bedtime As Directed
E11.65
oxycodone 5 mg tablet
5 mg PO Q6HPRN PRN (Reason: severe pain) Qty: 20 0RF
Continued
fluoxetine 20 mg Capsule
20 mg PO DAILY
rosuvastatin 40 mg Tablet
40 mg PO DAILY
aspirin 81 mg Capsule
81 mg PO DAILY
metoprolol succinate 25 mg tablet extended release 24 hr
25 mg PO DAILY
Discontinued
metformin 500 mg Tablet
500 mg PO BID
ibuprofen 200 mg Capsule
200 mg PO Q6H PRN (Reason: pain)
nitroglycerin 0.4 mg tablet, sublingual
0.4 mg sublingual [id number] PRN (Reason: chest pain) Qty: 25 5RF
Discharge Orders:
Discharge Patient (As Directed); Ordered 04/14/24
Ordered By: Tejal Anderson
Care Plan Goals
Care Plan Goals:
Problem: Readiness for enhanced knowledge related to diagnosis and treatment plan
Goal: Understand your diagnosis and treatment plan needs, including medications if applicable.
Instructions: Know your diagnosis, underlying causes and treatment plan options, including medications if applicable. Consult with your health care team to learn about your diagnosis and treatment plan, including medications if applicable.
Discharge Date and Time
Print Language: DUTCH
--- NOTE | 2024-04-14 15:20 | CM ---
Reviewed chart. Received consult to check co-pay for Farxiga. Telephone call to his insurance to check on co-pay Clementxiga would be $192.50 a month until his out of pocket and deductible is met. After he mets his out of pocket expense his co-pay
would be zero. Gave him the one month free coupon touse and the zero co-pay card to use. Reviewed with him.
--- NOTE | 2024-04-14 17:06 | PTCARENOTE ---
Discharge order written and pt showered and completed 2 steps with RN. Discharge instructions reviewed with patient and states full understanding - no further questions at this time. Pt belongings at bedside in room. PIV access and telemetry
removed. Awaiting family to arrive for discharge.
--- NOTE | 2024-04-15 15:33 | PN.CDI ---
CDI
- -
CDI:
Physician Documentation Request
Admit Date: 04/10/24 05:10
Dear Doctor Bird
Patient admitted for and underwent CABG for CAD
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
Please clarify which of the following accurately represents the acuity of the HFmEF
____ Acute
Chronic
____ Other
Use of terms such as suspected, likely, concern for, or probable (associated with a specific diagnosis that is being evaluated, monitored, or treated as if it exists) are acceptable and can be coded in the inpatient setting, when documented at the
time of discharge.
Thank you,
Lissa Goodwin RN, BSN
CDI Specialist
tiger text
Please use your independent medical judgment in providing your response.
== END 2024-04-14 18:08 | disposition home or self-care (01) | DRG 236 ==
LOC: CVICU 05:10
PROVIDERS: Anesthesiology; Clinical Nurse Specialist Acute Care; Nurse Practitioner; Physician Assistant Medical; ADMITTING PHYSICIAN Thoracic Surgery (Cardiothoracic Vascular Surgery); FAMILY PHYSICIAN Family Medicine; OTHER PHYSICIAN Internal Medicine Cardiovascular Disease; OTHER PHYSICIAN Internal Medicine Critical Care Medicine
PROC: 5A1221Z Performance of Cardiac Output, Continuous (ICD-10-PCS; 2024-04-10)
PROC: 021209W Bypass Coronary Artery, Three Arteries from Aorta with Autologous Venous Tissue, Open Approach (ICD-10-PCS; 2024-04-10)
PROC: B24BZZ4 Ultrasonography of Heart with Aorta, Transesophageal (ICD-10-PCS; 2024-04-10)
PROC: 06BP4ZZ Excision of Right Saphenous Vein, Percutaneous Endoscopic Approach (ICD-10-PCS; 2024-04-10)
PROC: 02100ZC Bypass Coronary Artery, One Artery from Thoracic Artery, Open Approach (ICD-10-PCS; 2024-04-10)
PROC: 30233N1 Transfusion of Nonautologous Red Blood Cells into Peripheral Vein, Percutaneous Approach (ICD-10-PCS; 2024-04-10)
DX: I25.119 Atherosclerotic heart disease of native coronary artery with unspecified angina pectoris (principal); D68.9 Coagulation defect, unspecified; D62 Acute posthemorrhagic anemia; N17.9 Acute kidney failure, unspecified; E87.1 Hypo-osmolality and hyponatremia; J98.11 Atelectasis; I30.8 Other forms of acute pericarditis; R00.1 Bradycardia, unspecified; E86.1 Hypovolemia; I44.0 Atrioventricular block, first degree; I44.7 Left bundle-branch block, unspecified; E87.70 Fluid overload, unspecified; E11.65 Type 2 diabetes mellitus with hyperglycemia; E78.5 Hyperlipidemia, unspecified; I10 Essential (primary) hypertension; F32.A Depression, unspecified; M10.9 Gout, unspecified; I25.5 Ischemic cardiomyopathy; G43.909 Migraine, unspecified, not intractable, without status migrainosus; Z85.828 Personal history of other malignant neoplasm of skin; Z79.82 Long term (current) use of aspirin; Z79.84 Long term (current) use of oral hypoglycemic drugs
CPT/HCPCS: 36415; 71045; 71046; 80048; 80053; 81003; 81015; 82248; 82330; 82565; 82805; 82810; 82947; 82962; 83036; 83735; 84132; 84302; 84520; 85014; 85018; 85025; 85027; 85049; 85347; 85384; 85576; 85610; 85730; 86850; 86900; 86901; 86920; 87070; 93005; 93312; 93320; 93325; 94002; 94010; P9016; P9045